=== PATIENT | female | born 1950 | race Caucasian/White ===

== ENCOUNTER 2018-03-10 14:15 | Outpatient (CLI) | payer MEDICARE, MEDICAID, BC, SELFPAY ==
--- NOTE | 2018-03-10 14:27 | DI.RAD_ITS ---
SYMPTOMS/DIAGNOSIS: FATIGUE, H/O HYPONATREMIA, RALES RLL, R06.89, R53.83 CHEST: Frontal and lateral views. No priors. The heart size and pulmonary vasculature are within normal limits. The lungs are clear. No effusions or pneumothoraces are identified. Age appropriate changes are seen in the thoracic spine. IMPRESSION: No acute pulmonary process.
[2018-03-10 16:05] LABS: Anion Gap 10.9 mmol/L (3-11); BUN 13 mg/dL (7-18); CO2 26.1 mmol/L (21.0-32.0); CREATININE 0.73 mg/dL (0.55-1.02); Calcium 9.6 mg/dL (8.5-10.1); Chloride 94 mmol/L (98-107); Glucose 96 mg/dL (70-100); Potassium 4.5 mmol/L (3.5-5.1); Sodium 131 mmol/L (136-145)
== END 2018-03-10 14:35 ==
PROVIDERS: PCP Family Medicine; Visit Provider Family Medicine
DX: I10 Essential (primary) hypertension (principal); R53.83 Other fatigue; R06.89 Other abnormalities of breathing
CPT/HCPCS: 36415; 80048; 71046

== ENCOUNTER 2018-04-15 01:01 | Outpatient (CLI) | payer MEDICARE, BC, MEDICAID, SELFPAY ==
--- NOTE | 2018-04-15 13:19 | DI.CT_ITS ---
SYMPTOM/DIAGNOSIS: CHRONIC HYPONATREMIA WITH RALES E87.1, R09.89, E03.[address]: Comparison is made with chest x-ray dated 10 Mar 2018 Images were performed from the lung bases through the level of the adrenals after IV contrast. There is mild subpleural septal thickening greatest anteriorly in the upper lobes and laterally, and posteriorly in the lung bases. There is also a reticular pattern in both lower lobes, right greater than left with mild traction bronchiectasis, right greater than left. No mass, infiltrate, pleural or pericardial effusion seen. There are no enlarged lymph nodes. Coronary artery calcifications and mild aortic calcifications are seen. The visualized portions of the upper abdomen are unremarkable. No lytic or blastic bony lesions are seen. IMPRESSION: Mild subpleural septal thickening, reticular densities in the lung bases right greater than left, bronchiectasis. The findings may indicate idiopathic pulmonary fibrosis.
[2018-04-15] MEDS: Omnipaque 350 MG/ML 100 ML BTL IJ (14:16)
[2018-04-15 14:33] LABS: Abs Immature Grans 0.01 k/cumm (0.0-0.09); Absolute Basophil Count 0.04 k/cumm (0.0-0.2); Absolute Eosinophil Count 0.24 k/cumm (0.0-0.7); Absolute Lymphocyte Count 2.24 k/cumm (1.2-3.4); Absolute Monocyte Count 0.35 k/cumm (0.11-0.7); Basophils % 0.6; Eosinophils % 3.5; HCT 35.8 % (36.0-46.0); HGB 12.6 g/dL (12.0-15.5); Immature Grans % 0.1; Mean Corp. HGB Concentration 35.2 g/dL (32.0-36.0); Mean Corpuscular Hemoglobin 34.6 pg (27.0-33.0); Mean Corpuscular Volume 98.4 fL (80-95); Mean Platelet Volume 8.7 fL (8.0-11.0); Monocytes % 5.2; Neutrophils % 57.6; Platelet Count 290 x1000/uL (130-400); RBC 3.64 m/cumm (4.00-5.20); RBC Distribution Width 12.6 % (11.7-14.6); White Blood Cell Count 6.78 k/cumm (4.4-10.8)
[2018-04-15 15:36] LABS: Sodium, Urine 34 mmol/L
[2018-04-15 16:15] LABS: Anion Gap 9.9 mmol/L (3-11); BUN 12 mg/dL (7-18); CO2 26.1 mmol/L (21.0-32.0); CREATININE 0.77 mg/dL (0.55-1.02); Calcium 9.6 mg/dL (8.5-10.1); Chloride 94 mmol/L (98-107); Glucose 103 mg/dL (70-100); Potassium 4.3 mmol/L (3.5-5.1); Sodium 130 mmol/L (136-145); TSH 2.79 uIU/mL (0.358-3.74)
[2018-04-15 22:22] LABS: Osmolality, Urine 254 mos/kg (150-1150)
[2018-04-15 23:42] LABS: Osmolality Serum 278 mos/kg (275-295)
== END 2018-04-15 01:21 ==
PROVIDERS: PCP Family Medicine; Visit Provider Family Medicine
DX: E87.1 Hypo-osmolality and hyponatremia (principal); E03.9 Hypothyroidism, unspecified; I10 Essential (primary) hypertension; R09.89 Other specified symptoms and signs involving the circulatory and respiratory systems; R91.8 Other nonspecific abnormal finding of lung field; J47.9 Bronchiectasis, uncomplicated
CPT/HCPCS: 36415; 80048; 83935; 71260; 83930; 84300; 84443; 85025; J3490

== ENCOUNTER 2018-04-28 02:46 | Outpatient (CLI) | payer MEDICARE, BC, MEDICAID, SELFPAY ==
--- NOTE | 2018-04-28 | PFT_ITS ---
PULMONARY FUNCTION TEST REPORT Patient identification - Bushra Cook DATE OF - 54 DATE OF SERVICE - 04/28/18 REQUESTING PROVIDER - Bryan Pulliam M.D. INTERPRETATION OF STUDY Spirometry shows no evidence of obstructive airways disease. No bronchodilator testing was carried out. LUNG VOLUMES - Lung volumes showed no evidence of restriction. DIFFUSION CAPACITY- Normal. AIRWAY RESISTANCE - Normal. IMPRESSION Normal pulmonary function study, clinical correlation recommended. Maribeth Marie M.D. CASPER/margarette T - 04/29/2018
== END 2018-04-28 03:06 ==
PROVIDERS: PCP Family Medicine; Visit Provider Family Medicine
DX: J84.10 Pulmonary fibrosis, unspecified (principal)
CPT/HCPCS: 94150; 94726; 94729; 94010

== ENCOUNTER 2018-10-20 18:27 | Outpatient (REF) | payer MEDICARE, BC, SELFPAY ==
[2018-10-20 19:43] LABS: Bilirubin Negative (Negative); Blood Trace-intact (Negative); Clarity Cloudy; Glucose Negative (Negative); Ketones Negative (Negative); Leukocyte Esterase Large (Negative); Nitrite Positive (Negative); Specific Gravity 1.015 (1.005-1.025); Urobilinogen 0.2 EU/dL (Up TO 0.2); pH 6.5 (5-8)
[2018-10-20 20:18] LABS: Epithelial Cells Rare HPF (Negative); Other Cells Negative (Negative); WBC >50 HPF (0-5)
[2018-10-20 20:19] LABS: Bacteria Many HPF (Negative); C & S Indicated? C&S Done As Ordered; Casts Negative LPF (Negative); Crystals Negative HPF (Negative); Mucus Negative (Negative)
== END 2018-10-20 18:47 ==
LOC: NCHCN 18:27
PROVIDERS: PCP Family Medicine; Visit Provider Family Medicine
DX: R30.0 Dysuria (principal)
CPT/HCPCS: 87077; 81003; 81015; 87086; 87186

== ENCOUNTER 2018-11-10 10:55 | Outpatient (CLI) | payer MEDICARE, BC, SELFPAY ==
[2018-11-10 12:24] LABS: Mean Corp. HGB Concentration 34.3 g/dL (32.0-36.0); Mean Corpuscular Hemoglobin 34.3 pg (27.0-33.0); Mean Platelet Volume 9.4 fL (8.0-11.0); Platelet Count 263 x1000/uL (130-400); RBC Distribution Width 12.6 % (11.7-14.6); White Blood Cell Count 6.64 k/cumm (4.4-10.8)
[2018-11-10 16:01] LABS: Iron 92 ug/dL (50-175); Total Iron Binding Capacity 361 ug/dL (250-450); Transferrin Sat 25 % (15-50)
[2018-11-10 16:05] LABS: ALT 41 U/L (12-78); AST 49 U/L (15-37); Albumin 4.2 g/dL (3.4-5.0); Alkaline Phosphatase 82 U/L (46-116); Anion Gap 11.5 mmol/L (3-11); BUN 13 mg/dL (7-18); Bilirubin, Total 0.4 mg/dL (0.2-1.0); CO2 24.5 mmol/L (21.0-32.0); CREATININE 0.71 mg/dL (0.55-1.02); Calcium 9.9 mg/dL (8.5-10.1); Chloride 100 mmol/L (98-107); Glucose 93 mg/dL (70-100); Potassium 5.1 mmol/L (3.5-5.1); Sodium 136 mmol/L (136-145); TSH 2.05 uIU/mL (0.358-3.74); Total Protein 7.8 g/dL (6.4-8.2)
== END 2018-11-10 11:15 ==
PROVIDERS: PCP Family Medicine; Visit Provider Family Medicine
DX: I10 Essential (primary) hypertension (principal); D64.9 Anemia, unspecified; E03.9 Hypothyroidism, unspecified
CPT/HCPCS: 36415; 80053; 85027; 83540; 83550; 84443

== ENCOUNTER 2019-05-31 10:57 | Outpatient (CLI) | payer MEDICARE, BC, SELFPAY ==
[2019-05-31 11:45] LABS: Abs Immature Grans 0.01 k/cumm (0.0-0.09); Absolute Basophil Count 0.06 k/cumm (0.0-0.2); Absolute Eosinophil Count 0.41 k/cumm (0.0-0.7); Absolute Lymphocyte Count 1.89 k/cumm (1.2-3.4); Basophils % 0.8; Eosinophils % 5.6; HCT 34.2 % (36.0-46.0); HGB 11.7 g/dL (12.0-15.5); Immature Grans % 0.1 %; Lymphocytes % 25.6; Mean Corp. HGB Concentration 34.2 g/dL (32.0-36.0); Mean Corpuscular Hemoglobin 34.4 pg (27.0-33.0); Mean Corpuscular Volume 100.6 fL (80-95); Mean Platelet Volume 8.8 fL (8.0-11.0); Monocytes % 6.8; Neutrophils % 61.1; Platelet Count 295 x1000/uL (130-400); RBC Distribution Width 13.8 % (11.7-14.6); White Blood Cell Count 7.37 k/cumm (4.4-10.8)
== END 2019-05-31 11:17 ==
PROVIDERS: PCP Family Medicine; Visit Provider Family Medicine
DX: R71.8 Other abnormality of red blood cells (principal)
CPT/HCPCS: 36415; 85025

== ENCOUNTER 2019-11-26 02:30 | Outpatient (CLI) | payer MEDICARE, BC, SELFPAY ==
[2019-11-26 12:56] LABS: Abs Immature Grans 0.01 k/cumm (0.0-0.09); Absolute Basophil Count 0.02 k/cumm (0.0-0.2); Absolute Eosinophil Count 0.49 k/cumm (0.0-0.7); Absolute Lymphocyte Count 1.28 k/cumm (1.2-3.4); Absolute Monocyte Count 0.42 k/cumm (0.11-0.7); Absolute Neutrophil Count 2.56 k/cumm (1.2-6.7); Basophils % 0.4; Eosinophils % 10.3; HCT 36.3 % (36.0-46.0); HGB 12.4 g/dL (12.0-15.5); Immature Grans % 0.2 %; Lymphocytes % 26.8; Mean Corp. HGB Concentration 34.2 g/dL (32.0-36.0); Mean Corpuscular Hemoglobin 33.4 pg (27.0-33.0); Mean Corpuscular Volume 97.8 fL (80-95); Mean Platelet Volume 10.1 fL (8.0-11.0); Monocytes % 8.8; Neutrophils % 53.5; Platelet Count 293 x1000/uL (130-400); RBC 3.71 m/cumm (4.00-5.20); RBC Distribution Width 12.8 % (11.7-14.6); White Blood Cell Count 4.78 k/cumm (4.4-10.8)
[2019-11-26 13:44] LABS: ALT 25 U/L (14-59); AST 31 U/L (15-37); Albumin 4.1 g/dL (3.4-5.0); Alkaline Phosphatase 54 U/L (46-116); Anion Gap 8.1 mmol/L (3-11); BUN 9 mg/dL (7-18); Bilirubin, Total 0.4 mg/dL (0.2-1.0); CO2 28.9 mmol/L (21.0-32.0); CREATININE 0.69 mg/dL (0.55-1.02); Calcium 9.9 mg/dL (8.5-10.1); Calculated LDL 205 mg/dL (<100); Chloride 97 mmol/L (98-107); Cholesterol 322 mg/dL (<200); Folate 17.3 ng/mL (8.6-20.0); Glucose 94 mg/dL (74-106); HDL Cholesterol 105 mg/dL (40-60); Potassium 5.4 mmol/L (3.5-5.1); Sodium 134 mmol/L (136-145); TSH 3.24 uIU/mL (0.36-3.74); Total Protein 7.1 g/dL (6.4-8.2); Triglyceride 64 mg/dL (<150); Vitamin B12 571 pg/mL (193-986)
== END 2019-11-26 02:50 ==
PROVIDERS: PCP Family Medicine; Visit Provider Family Medicine
DX: D64.9 Anemia, unspecified (principal); D75.89 Other specified diseases of blood and blood-forming organs; E03.9 Hypothyroidism, unspecified; I10 Essential (primary) hypertension; R53.83 Other fatigue
CPT/HCPCS: 36415; 80053; 80061; 82607; 82746; 84443; 85025

== ENCOUNTER 2019-11-30 07:34 | Outpatient (CLI) | payer MEDICARE, BC, SELFPAY ==
[2019-12-02 02:56] LABS: COVID-19 RT-PCR Result NEGATIVE (Negative)
== END 2019-11-30 07:54 ==
PROVIDERS: PCP Family Medicine; Visit Provider Podiatrist
DX: Z03.818 Encounter for observation for suspected exposure to other biological agents ruled out (principal)
CPT/HCPCS: U0003

== ENCOUNTER 2019-12-03 06:18 | Day surgery (SDC) | payer MEDICARE, BC, SELFPAY ==
[2019-12-03 06:34] VITALS: BP 139/78; PULSE 71; RESP 16; TEMP 36.5; O2SAT 93
--- NOTE | 2019-12-03 07:19 | HPE_ITS ---
Date of service: 12/03/19 Time of Service: 07:19 History of Present Illness History of Present Illness Chief Complaint: Plantar fibroma right foot Narrative: 69-year-old female with daily pain associated with a prominent plantar fibroma of the right foot requesting surgical excision. Pain is interfering with daily activities and shoe gear. Nonoperative treatment failed to provide significant relief of symptoms. 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 Sister Depression Brother , AGE 67 Lung cancer Social History Smoking/Tobacco Use Status: Former Tobacco Use Tobacco: How many years used: 15 Alcohol Intake: current Alcohol Intake frequency: 0-2 drinks per day Alcohol type: beer Drug use: Socially Substance use type: marijuana Household members: other Details: 3 Pets and animals: Yes Pets and animals: cat(s), dog(s), horse(s) and farm animals Duration: decline to answer Frequency: daily Lluvia/Hoahaoism: Sabianist Special lluvia needs: No Seatbelt use: sometimes Helmet use: Yes Do you feel safe at home: Yes Do you feel safe in your relationship?: Yes Meds Home Medications and Allergies Home Medications Medication Instructions Recorded Confirmed Type antiarthritic combination no.2 900 mg PO DAILY tab 02/18/18 11/08/19 History mg tablet ascorbic acid (vitamin C) 1,000 mg 1,000 mg PO DAILY PRN tab 05/18/19 12/03/19 History tablet vitamin B complex 1 tab PO DAILY PRN 05/18/19 12/03/19 History amlodipine 2.5 mg tablet 2.5 mg PO DAILY #90 tab 07/20/19 12/03/19 Rx amlodipine 5 mg tablet 5 mg PO DAILY #90 tab 07/20/19 12/03/19 Rx levothyroxine 112 mcg capsule 112 mcg PO DAILY #90 cap 07/20/19 12/03/19 Rx losartan 100 mg tablet 100 mg PO DAILY #90 tab 07/20/19 12/03/19 Rx Allergies Allergy/AdvReac Type Severity Reaction Status Date / Time morphine AdvReac Agitation Verified 11/30/19 13:48 Exam Narrative Exam Narrative: 69-year-old female in no acute distress. Head is normocephalic Eyes PERRLA Hearing is adequate Uvular is midline, airway looks assessable Heart had regular rate and rhythm without gallops rubs or murmurs Lung sullivan are clear Abdomen was soft, bowel sounds x4 Peripheral pulses are manually palpable minus 2 out of 4. CFT under 3 seconds to all toes no edema Muscle groups of 5 out of 5 bilaterally. A firm mass is appreciated within the medial slip of the plantar fascia of the right foot at the distal third highly consistent with plantar fibroma. Nonpulsatile, firm to palpation, overlying skin freely mobile. Neurologically grossly intact Impression: Soft tissue mass right foot probable plantar fibroma Plan: Bushra being brought to the OR for exploration with excision soft tissue mass right foot. She understands risk and complications of surgery pertaining to pain, scarring, infection, wound dehiscence, recurrence of fibroma and the need for revisional procedures. All questions have been answered. Informed consents been obtained. No promises made to final outcome of surgery. Results Last Vital Signs Temp 36.5 C 12/03/19 06:34 Pulse 71 12/03/19 06:34 Resp 16 12/03/19 06:34 BP 139/78 12/03/19 06:34 Pulse Ox 93 L 12/03/19 06:34 COVID-19 Screening Have you,or household,traveled outside [place] in last 14 days?: No Had IN PERSON contact w/suspected or confirmed C-19 person: No
[2019-12-03] MEDS: Lactated Ringers 1,000 ML 80 ML IV (07:20)
[2019-12-03] MEDS: ceFAZolin 1 GM/50 ML BAG IVPB (07:36)
[2019-12-03] MEDS: Lidocaine 1% Pres-Free 5 ML VIAL (07:55)
[2019-12-03] MEDS: Bupivacaine 0.5% Pres-Free 30 ML VIAL (07:55)
--- NOTE | 2019-12-03 08:05 | SOFT_PTH ---
PATIENT: Bushra Cook LOC: [facility] U#:[id number] AGE/SX: 69/F ROOM: RE12/03/[address]: Eber Titus : 1950 BED: DIS: 12/03/2019 SPEC #: [id number] RECD: 12/03/19 12:20 STATUS: FAZAL RELauren #: [id number] DESTIN: 12/03/19 08:[address]: Eber Titus DEPT: Surgical Specimen RECD BY: Bianca Patel ENTERED: 12/03/19 12:21 SP TYPE: SOFT OTHR DR: Bryan Pulliam MD Tissues: 1 - SOFT TISSUE MISC (INC. LIPOMA) Procedures: GROSS AND MICRO LEVEL 4 Comments: [id number]
[2019-12-03] MEDS: Dexamethasone 4 MG/ML VIAL (08:11)
--- NOTE | 2019-12-03 08:28 | ROE_ITS ---
Date of service: 12/03/19 Time of Service: 08:29 Operative Note Operative Note DATE OF PROCEDURE: 12/03/19 PRE-OP DIAGNOSIS: Soft tissue mass right foot probable plantar fibroma PROCEDURE: Excision plantar fibroma, right foot ANESTHESIA: GETA ESTIMATED BLOOD LOSS: 1 PATHOLOGY: other TOURNIQUET TIME: 25 Patient was transported to: same day Patient's condition: stable Procedure Description: 69-year-old female with increasing pain associated with a slowly enlarging mass situated within the medial slip of the plantar fascia right foot. She is being brought to the OR for surgical excision. She understands risk and complications including the potential for pain, scarring, infection, recurrence of mass and the need for revisional procedures. Informed consents been obtained. Bushra was brought to the operative suite placed in the supine position with a right foot prepped and draped in the usual sterile podiatric fashion. Timeout was performed per [facility] protocol. The right foot was anesthetized with 20 cc utilizing 15 cc of 0.5% Marcaine and 5 cc of 1% lidocaine all plain the right posterior tibial nerve block and local infiltration around the mass. General anesthesia was also utilized for patient comfort. Attention was directed to the right foot which was exsanguinated and a well- padded ankle tourniquet inflated to 250 mmHg. A lazy S incision was placed starting distal lateral going across the mass and ending medially proximally. The length of the incision was approximately 4 cm. The incision was deepened in controlled depth fashion with a #15 scalpel. Soft tissue mobilization and dissection was performed both sharply and bluntly switching to a baby Metzenbaum for further dissection. The mass was immediately identifiable and dissection continued distally medially laterally and proximally. Once the lesion was fully identified and visible I placed a incision through the plantar fascia at the distal pole of the lesion went deep to the plantar fascia and dissected away from the underlying muscle belly which was readily visible. No neurologic structures were identified. Dissection was carried medially proximally lifting the mass with the section of plant the fascia off the wound moving laterally doing the same thing and peeling the fibroma off the underlying muscle belly. Once it was fully lifted up it was released from its most proximal attachment and removed from the surgical wound. The mass was sent in formalin to pathology. In a palpation and visual inspection of the surrounding fascia failed to reveal any abnormal thickening of for the fibroma formation. The wound was copiously irrigated and the deep layer was closed with simple interrupted suture of 4-0 Vicryl and there was a single 3-0 Vicryl used in the central portion of the incision to relieve tension. Good skin edge opposition was appreciated. The skin was then closed with a combination of 3 horizontal mattress 3-0 nylon suture interspersed by several 4-0 nylon simple interrupted suture. 4 mg of dexamethasone phosphate was infused deeply within the wound. Xeroform fluffs Curlex web well and a fiberglass posterior splint was applied with the foot in slight plantarflexion. The tourniquet was released at 25 minutes with vascularity returning immediately to all toes. Sharp and sponge counts were correct x2. Bushra left the OR with vital signs stable vascular status intact will be followed by myself in the office next week. She will be fitted for axillary crutches and will remain nonweightbearing for the right lower extremity.
--- NOTE | 2019-12-03 08:36 | W.PM.DSUDISC ---
Discharge Plan Disposition Patient Disposition: HOME Condition: Good Discharge Details Reason For Visit: EXCISION MASS Attending Provider: Eber Titus Primary Care Provider: Bryan Pulliam Home Meds and New Rx's Prescriptions: New ibuprofen 600 mg tablet 600 mg PO Q6H PRN (Reason: post op pain) Qty: 40 RF: 0 hydrocodone-acetaminophen [[place]] 5-325 mg tablet 1 tab PO Q6H PRN (Reason: pain) Qty: 7 RF: 0 Continued antiarthritic combination no.2 [glucosamine-chondroitin] 900 mg tablet PO DAILY RF: 0 vitamin B complex Tablet 1 tab PO DAILY PRNRF: 0 ascorbic acid (vitamin C) 1,000 mg tablet 1,000 mg PO DAILY PRNRF: 0 amlodipine 5 mg tablet 5 mg PO DAILY Qty: 90 RF: 3 amlodipine 2.5 mg tablet 2.5 mg PO DAILY Qty: 90 RF: 3 levothyroxine 112 mcg capsule 112 mcg PO DAILY Qty: 90 RF: 3 losartan 100 mg tablet 100 mg PO DAILY Qty: 90 RF: 3 Discharge Instructions Equipment/Supplies: Non-Weight Bearing Crutches Activity:: Elevate Remove Dressings/Wound Care:: Do Not Remove Shower/Bathe:: Cover Diet:: Normal Diet Discharge Orders Discharge Orders: Discharge Order (Routine); Ordered 12/03/19 Ordered By: Eber Titus DS: Diagnosis Discharge Diagnosis (1) Plantar fascial fibromatosis of right foot: Status: Acute
[2019-12-03] MEDS: Ketorolac 15 MG/ML VIAL IVP (08:45)
[2019-12-03] MEDS: Normal Saline Flush 10 ML SYR IVP (08:45)
[2019-12-03 08:58] VITALS: BP 89/63; PULSE 65; RESP 16; TEMP 36.1; O2SAT 100
--- NOTE | 2019-12-03 09:38 | NUR.NOTE ---
Low BP on phase II: 80/50 at 0828 and 89/63 at 0858. Anesthesia notified. Verbal order to bolus remaining IV fluid. BP at 0930 was 105/80. Pt. denied dizziness and accepted 120 of PO fluids. Pt. up and assisted to the restroom w/o issues. Nursing Note:
[2019-12-03] MEDS: Lactated Ringers 500 ML IV (09:49)
== END 2019-12-03 09:37 | disposition home or self-care (01) ==
PROVIDERS: PCP Family Medicine; Visit Provider Podiatrist
PROC: (CPT 28060; principal; 2019-12-03 07:30)
DX: M72.2 Plantar fascial fibromatosis (principal)
CPT/HCPCS: 28060; 88305; 99222; 88304; J0690; J1100; J1885; J2405

== ENCOUNTER 2020-02-09 03:03 | Outpatient (CLI) | payer MEDICARE, BC, SELFPAY ==
--- NOTE | 2020-02-09 10:51 | DI.RAD_ITS ---
EXAM: XR HIP RT COMPLETE AP PELVIS INDICATION: H/O of remote trauma, progressive RT HIP PAIN,M25.551. COMPARISON: No exams were available for comparison TECHNIQUE: 2D digital imaging was performed. FINDINGS: The hip joint spaces are well maintained. There is mild bilateral acetabular spurring. There is spu rring from the greater trochanters. There is a calcification adjacent to the left greater trochanter . There is mild spurring at the SI joints. There are severe degenerative changes of the lower lumba r spine. IMPRESSION: Mild degenerative changes both hips. Soft tissue calcification near the left greater trochanter. DATA REPOSITORY: RADIATION DOSE DELIVERED:
== END 2020-02-09 03:23 ==
PROVIDERS: PCP Family Medicine; Visit Provider Family Medicine
DX: M16.0 Bilateral primary osteoarthritis of hip (principal); M79.89 Other specified soft tissue disorders
CPT/HCPCS: 73502

== ENCOUNTER 2020-02-11 02:04 | Outpatient (CLI) | payer MEDICARE, BC, SELFPAY ==
[2020-02-11 13:21] LABS: ALT 25 U/L (14-59); AST 35 U/L (15-37); Alkaline Phosphatase 63 U/L (46-116); Anion Gap 8.5 mmol/L (3-11); BUN 7 mg/dL (7-18); Bilirubin, Total 0.7 mg/dL (0.2-1.0); CO2 25.5 mmol/L (21.0-32.0); CREATININE 0.65 mg/dL (0.55-1.02); Calcium 9.2 mg/dL (8.5-10.1); Calculated LDL 77 mg/dL (<100); Chloride 95 mmol/L (98-107); Cholesterol 197 mg/dL (<200); Glucose 88 mg/dL (74-106); HDL Cholesterol 110 mg/dL (40-60); Potassium 4.9 mmol/L (3.5-5.1); Sodium 129 mmol/L (136-145); Total Protein 6.9 g/dL (6.4-8.2); Triglyceride 51 mg/dL (<150)
== END 2020-02-11 02:24 ==
PROVIDERS: PCP Family Medicine; Visit Provider Family Medicine
DX: I10 Essential (primary) hypertension (principal); E78.5 Hyperlipidemia, unspecified
CPT/HCPCS: 36415; 80053; 80061

== ENCOUNTER 2020-03-14 01:31 | Outpatient (CLI) | payer MEDICARE, BC, SELFPAY ==
--- NOTE | 2020-03-14 07:00 | DI.MRI_ITS ---
EXAM: MR LOWER JOINT RT WO CLINICAL HISTORY: chronic R hip pain with catching/click w walking,M94.9,G89.29,M25.551 TECHNIQUE: Multiplanar multisequence MRI of Pelvis was performed COMPARISON: CR XR HIP RT COMPLETE AP PELVIS from 02/09/2020 FINDINGS: Bones: There is no fracture or contusion pattern. There is a right hip joint effusion present. Inte rmediate signal soft tissue is seen within the right hip joint inferiorly. There is marrow edema see n in the right acetabulum and the right humeral head and neck. The visualized SI joints and symphysi s pubis are well maintained. Musculotendinous structures: Musculotendinous structures demonstrate no abnormality. Intrapelvic str uctures demonstrate no significant abnormality. There is no evidence of suspicious enhancement. IMPRESSION: Findings in the right hip as described above. Differential considerations should include rheumatoid a rthritis, avascular necrosis, PVNS, synovial chondromatosis or arthropathy. DATA REPOSITORY:
== END 2020-03-14 01:51 ==
PROVIDERS: PCP Family Medicine; Visit Provider Family Medicine
DX: M25.451 Effusion, right hip (principal); R93.6 Abnormal findings on diagnostic imaging of limbs; M25.551 Pain in right hip; G89.29 Other chronic pain
CPT/HCPCS: 73721

== ENCOUNTER 2020-04-10 11:55 | Outpatient (CLI) | payer MEDICARE, BC, SELFPAY ==
--- NOTE | 2020-04-10 11:15 | DI.RAD_ITS ---
EXAM: XR PELVIS AP CLINICAL HISTORY: planning VASQUEZ TECHNIQUE: COMPARISON: CR XR HIP RT COMPLETE AP PELVIS from 02/09/2020 FINDINGS: Single AP view pelvis with there are moderate degenerative changes of both hips, right greater than l eft. There are degenerative changes of both SI joints noted as well. IMPRESSION: RADIATION DOSE DELIVERED: Total DLP Total DLP
== END 2020-04-10 12:15 ==
PROVIDERS: PCP Family Medicine; Referring Provider Family Medicine; Visit Provider Student in an Organized Health Care Education/Training Program
DX: M16.0 Bilateral primary osteoarthritis of hip (principal); M87.051 Idiopathic aseptic necrosis of right femur; I10 Essential (primary) hypertension
CPT/HCPCS: 99204; 99215; 72170

== ENCOUNTER 2020-04-14 01:56 | Outpatient (CLI) | payer MEDICARE, BC, SELFPAY ==
[2020-04-14 10:38] LABS: HCT 32.7 % (36.0-46.0); HGB 11.7 g/dL (11.2-15.7); MCH 33.8 pg (27.0-33.0); MCHC 35.8 % (32.0-36.0); MCV 94.5 fL (80-95); MPV 9.3 fL (8.0-11.0); Platelet Count 343 10^3/uL (130-400); RBC 3.46 10^6/uL (3.93-5.22); RDW 11.8 % (11.7-14.6); RDW-SD 40.5 fL; WBC 5.37 10^3/uL (4.4-10.8)
[2020-04-14 11:18] LABS: Anion Gap 5.4 mmol/L (3-11); BUN 7 mg/dL (7-18); CO2 27.6 mmol/L (21.0-32.0); CREATININE 0.63 mg/dL (0.55-1.02); Calcium 9.6 mg/dL (8.5-10.1); Chloride 91 mmol/L (98-107); Glucose 89 mg/dL (74-106); Potassium 5.1 mmol/L (3.5-5.1)
[2020-04-14 11:20] LABS: Sodium 124 mmol/L (136-145)
[2020-04-14 11:21] LABS: C-Reactive Protein < 0.05 mg/dL (0.0-0.3)
[2020-04-14 11:39] LABS: ESR 10 mm/hr (0-30)
[2020-04-15 16:46] LABS: COVID-19 RT-PCR Result NEGATIVE (Negative)
== END 2020-04-14 02:16 ==
PROVIDERS: PCP Family Medicine; Visit Provider Student in an Organized Health Care Education/Training Program
DX: M25.551 Pain in right hip (principal); M87.051 Idiopathic aseptic necrosis of right femur; Z11.59 Encounter for screening for other viral diseases; Z01.818 Encounter for other preprocedural examination; Z01.812 Encounter for preprocedural laboratory examination
CPT/HCPCS: 36415; 80048; 85027; 85652; 86850; 86900; 86901; U0003; 86140

== ENCOUNTER 2020-04-18 06:06 | Day surgery (SDC) | payer MEDICARE, BC, SELFPAY ==
[2020-04-18] VITALS (7 sets, daily range): BP systolic 108–136; BP diastolic 64–86; PULSE 62–79; RESP 12–21; TEMP 36.3–36.5; O2SAT 98–100
[2020-04-18] MEDS: Lactated Ringers 1,000 ML 30 ML IV (07:03)
[2020-04-18] MEDS: Acetaminophen 500 MG TAB 1000 MG PO (07:03)
[2020-04-18] MEDS: Celecoxib 200 MG CAP 400 MG PO (07:03)
[2020-04-18 07:10] LABS: Anion Gap 10.5 mmol/L (3-11); BUN 10 mg/dL (7-18); CO2 22.5 mmol/L (21.0-32.0); CREATININE 0.82 mg/dL (0.55-1.02); Calcium 9.6 mg/dL (8.5-10.1); Chloride 101 mmol/L (98-107); Glucose 96 mg/dL (74-106); Potassium 4.2 mmol/L (3.5-5.1); Sodium 134 mmol/L (136-145)
--- NOTE | 2020-04-18 07:31 | W.PM.DS.N ---
DS: Diagnosis Discharge Diagnosis (1) Avascular necrosis of right femoral head: Status: Acute Discharge Plan Disposition Patient Disposition: HOME Condition: Good Discharge Details Reason For Visit: right hip DJD Attending Provider: Bo Noland Primary Care Provider: Bryan Pulliam Home Meds and New Rx's Prescriptions: New acetaminophen 500 mg tablet 500 mg PO Q6H PRN (Reason: pain) Qty: 60 RF: 2 aspirin 81 mg tablet,delayed release (DR/EC) 81 mg PO BID 30 Days Qty: 60 RF: 0 celecoxib [Celebrex] 200 mg capsule 200 mg PO BID Qty: 30 RF: 0 pantoprazole 40 mg tablet,delayed release (DR/EC) 40 mg PO DAILY 30 Days Qty: 30 RF: 0 docusate sodium [Colace] 100 mg capsule 100 mg PO BID Qty: 30 RF: 0 Continued antiarthritic combination no.2 [glucosamine-chondroitin] 900 mg tablet PO DAILY RF: 0 vitamin B complex Tablet 1 tab PO DAILY PRNRF: 0 levothyroxine 112 mcg capsule 112 mcg PO DAILY Qty: 90 RF: 3 atorvastatin 20 mg tablet 20 mg PO QHS Qty: 30 RF: 11 losartan 50 mg tablet 100 mg PO DAILY Qty: 90 RF: 3 amlodipine 5 mg tablet 5 mg PO DAILY Qty: 30 RF: 11 Discontinued aspirin [Adult Aspirin Regimen] 81 mg tablet,delayed release (DR/EC) 81 mg PO DAILY Qty: 90 RF: 3 ibuprofen 600 mg tablet 600 mg PO Q6H PRN (Reason: post op pain) Qty: 40 RF: 0 Discharge Instructions Additional Instructions: Total Hip Discharge Instructions Activity: The most important activity is to walk. You should try to take short walks a few times a day. You have no restrictions on movement or positioning, but do not try to force what you do. You will find some stiffness and weakness with hip flexion (lifting your knee). Do not try to strengthen this too early, continue to practice walking and stairs and this will come. - Outpatient physical therapy can be helpful to help return you to a normal gait and improve your flexibility and strength. This can start around 2 weeks. For some patients, it?s not necessary. Usually this is determined at the time of discharge or at the first post-operative visit. - You should wear the BAYLEE hose on both legs for 2 weeks. Dressing: Keep the surgical dressing in place for at least one week. After the first week it may be removed and replace with light gauze and tape or nothing. It may get wet after 3 days but avoid soaking the dressing. If it gets wet, just lightly pat dry. It is important to always keep some gauze between skin folds, especially when you are sitting. Spend some time with the wound exposed when you are lying flat as the incision does wrinkle onto itself. Medications: - You should take Tylenol and an anti-inflammatory Celebrex as your primary pain control medications. If the Celebrex is too expensive or not covered, please call the office for another alternative (Advil/Ibuprofen or Naproxen/Aleve). - You had previously been prescribed a stronger pain medication Oxycodone by your PCP for breakthrough pain, take as needed as prescribed. - You have also been prescribed a stomach acid reduction agent Pantoprozole to help reduce stomach acid and reflux. - You will be taking Aspirin 81mg twice a day for DVT prevention unless instructed otherwise. - If you have constipation you should take Colace (which was prescribed) or Miralax (which you may purchase [id number]). It takes most people 3-4 days to have a bowel movement. Follow-up: 2 weeks If you have any acute concerns or questions, please do not hesitate to contact the office at [phone]. You may contact Dr. Noland with any questions after hours through the hospital at [phone] or on his cell phone at [phone]. Referrals: Bo Noland MD [ [facility] STAFF PHYSICIAN] - Activity:: Activity as Tolerated Remove Dressings/Wound Care:: 72 hours Shower/Bathe:: 72 hours Diet:: As Tolerated DS: Data Vitals/I&O Vitals and I&O: Vital Signs Temperature 36.5 C 04/18/20 06:21 Pulse 73 04/18/20 06:21 Pulse Rhythm Regular 04/18/20 06:21 Respiratory Rate 16 04/18/20 06:21 Respiratory Effort 04/18/20 06:21 Respiratory Depth Normal 04/18/20 06:21 Respiratory Pattern Normal 04/18/20 06:21 Blood Pressure 110/69 04/18/20 06:21 Pulse Oximetry 100 04/18/20 06:21 Oxygen Delivery Method Room Air 04/18/20 06:21 Oxygen Flow Rate 0 04/18/20 06:21 Pain Level 5 04/18/20 06:21 Intake & Output 04/17/20 04/17/20 04/18/20 11:59 23:59 11:59 Weight 55.5 kg Data Completed and Pending Labs on day of discharge: Labs from last 24 hours 04/18/20 06:50 Sodium 134 L Potassium 4.2 Chloride 101 Carbon Dioxide 22.5 Anion Gap 10.5 BUN 10 Creatinine 0.82 Estimated GFR/1.73 m2 >= 60.00 Glucose 96 Calcium 9.6 [facility] Medical History Anemia Essential hypertension Hyperlipidemia Hypothyroidism Plantar fascial fibromatosis of right foot Pulmonary fibrosis Pt. states it has been put by the wayside because I score so well on the tests, and doctor states they don't hear it anymore, and it was related to a pneumonia at one point and time, and now they say it isn't a problem. 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 Sister Depression Brother , AGE 67 Lung cancer Social History Smoking/Tobacco Use Status: Former Tobacco Use Tobacco: How many years used: 15 Smoking risk assessment performed?: Yes Alcohol Intake: current Alcohol Intake frequency: 0-2 drinks per day Alcohol type: beer Drug use: Never Substance use type: marijuana Household members: other Details: 3 Pets and animals: Yes Pets and animals: cat(s), dog(s), horse(s) and farm animals Duration: decline to answer Frequency: daily Lluvia/Congregation: Nondenominational Special lluvia needs: No Seatbelt use: sometimes Helmet use: Yes Do you feel safe at home: Yes Do you feel safe in your relationship?: Yes
[2020-04-18] MEDS: ceFAZolin 2 GM/50 ML BAG IVPB (07:40)
[2020-04-18] MEDS: Ketorolac 30 MG/ML VIAL (07:57)
[2020-04-18] MEDS: Bupivacaine 0.25% Pres-Free 30 ML VIAL (07:57)
--- NOTE | 2020-04-18 08:32 | DI.RAD_ITS ---
EXAM: XR HIP RT IN OR CLINICAL HISTORY: right hip OA TECHNIQUE: 2D and realtime digital imaging was performed. COMPARISON: No exams were available for comparison FINDINGS: C-arm fluoroscopy was utilized by Dr. Noland during placement of right hip prosthesis. Hard copies show femoral and acetabular components in good position. Fluoro time, 37 seconds. IMPRESSION: RADIATION DOSE DELIVERED: Total DLP
--- NOTE | 2020-04-18 08:57 | DSE_ITS ---
Documented by User: Marcelle Morochoxon 04/18/20 09:29 DS: Diagnosis Discharge Diagnosis (1) Avascular necrosis of right femoral head: Status: Acute Discharge Plan Disposition Patient Disposition: HOME Condition: Good Discharge Details Reason For Visit: right hip DJD Attending Provider: Bo Noland Primary Care Provider: Bryan Pulliam Home Meds and New Rx's Prescriptions: New acetaminophen 500 mg tablet 500 mg PO Q6H PRN (Reason: pain) Qty: 60 RF: 2 aspirin 81 mg tablet,delayed release (DR/EC) 81 mg PO BID 30 Days Qty: 60 RF: 0 celecoxib [Celebrex] 200 mg capsule 200 mg PO BID Qty: 30 RF: 0 pantoprazole 40 mg tablet,delayed release (DR/EC) 40 mg PO DAILY 30 Days Qty: 30 RF: 0 docusate sodium [Colace] 100 mg capsule 100 mg PO BID Qty: 30 RF: 0 Continued antiarthritic combination no.2 [glucosamine-chondroitin] 900 mg tablet PO DAILY RF: 0 vitamin B complex Tablet 1 tab PO DAILY PRNRF: 0 levothyroxine 112 mcg capsule 112 mcg PO DAILY Qty: 90 RF: 3 atorvastatin 20 mg tablet 20 mg PO QHS Qty: 30 RF: 11 losartan 50 mg tablet 100 mg PO DAILY Qty: 90 RF: 3 amlodipine 5 mg tablet 5 mg PO DAILY Qty: 30 RF: 11 Discontinued aspirin [Adult Aspirin Regimen] 81 mg tablet,delayed release (DR/EC) 81 mg PO DAILY Qty: 90 RF: 3 ibuprofen 600 mg tablet 600 mg PO Q6H PRN (Reason: post op pain) Qty: 40 RF: 0 Discharge Instructions Additional Instructions: Total Hip Discharge Instructions Activity: The most important activity is to walk. You should try to take short walks a few times a day. You have no restrictions on movement or positioning, but do not try to force what you do. You will find some stiffness and weakness with hip flexion (lifting your knee). Do not try to strengthen this too early, continue to practice walking and stairs and this will come. - Outpatient physical therapy can be helpful to help return you to a normal gait and improve your flexibility and strength. This can start around 2 weeks. For some patients, it?s not necessary. Usually this is determined at the time of discharge or at the first post-operative visit. - You should wear the BAYLEE hose on both legs for 2 weeks. Dressing: Keep the surgical dressing in place for at least one week. After the first week it may be removed and replace with light gauze and tape or nothing. It may get wet after 3 days but avoid soaking the dressing. If it gets wet, just lightly pat dry. It is important to always keep some gauze between skin folds, especially when you are sitting. Spend some time with the wound exposed when you are lying flat as the incision does wrinkle onto itself. Medications: - You should take Tylenol and an anti-inflammatory Celebrex as your primary pain control medications. If the Celebrex is too expensive or not covered, please call the office for another alternative (Advil/Ibuprofen or Naproxen/Aleve). - You had previously been prescribed a stronger pain medication Oxycodone by your PCP for breakthrough pain, take as needed as prescribed. - You have also been prescribed a stomach acid reduction agent Pantoprozole to help reduce stomach acid and reflux. - You will be taking Aspirin 81mg twice a day for DVT prevention unless instructed otherwise. - If you have constipation you should take Colace (which was prescribed) or Miralax (which you may purchase [id number]). It takes most people 3-4 days to have a bowel movement. Follow-up: 2 weeks If you have any acute concerns or questions, please do not hesitate to contact the office at [phone]. You may contact Dr. Noland with any questions after hours through the hospital at [phone] or on his cell phone at [phone]. Referrals: Bo Noland MD [ [facility] STAFF PHYSICIAN] - Activity:: Activity as Tolerated Remove Dressings/Wound Care:: 72 hours Shower/Bathe:: 72 hours Diet:: As Tolerated Discharge Orders Discharge Orders: Discharge Order (Routine); Ordered 04/18/20 Ordered By: oB Noland DS: Data Vitals/I&O Vitals and I&O: Vital Signs Temperature 36.5 C 04/18/20 06:21 Pulse 73 04/18/20 06:21 Pulse Rhythm Regular 04/18/20 06:21 Respiratory Rate 16 04/18/20 06:21 Respiratory Effort 04/18/20 06:21 Respiratory Depth Normal 04/18/20 06:21 Respiratory Pattern Normal 04/18/20 06:21 Blood Pressure 110/69 04/18/20 06:21 Pulse Oximetry 100 04/18/20 06:21 Oxygen Delivery Method Room Air 04/18/20 06:21 Oxygen Flow Rate 0 04/18/20 06:21 Pain Level 5 04/18/20 06:21 Intake & Output 04/17/20 04/17/20 04/18/20 11:59 23:59 11:59 Intake Total 510 / 510 Output Total 150 / 150 Balance 360 / 360 Weight 55.5 kg Intake: IV 510 / 510 Output: Estimated Blood Loss 150 / 150 Data Completed and Pending Labs on day of discharge: Labs from last 24 hours 04/18/20 06:50 Sodium 134 L Potassium 4.2 Chloride 101 Carbon Dioxide 22.5 Anion Gap 10.5 BUN 10 Creatinine 0.82 Estimated GFR/1.73 m2 >= 60.00 Glucose 96 Calcium 9.6 PFSH Medical History Anemia Essential hypertension Hyperlipidemia Hypothyroidism Plantar fascial fibromatosis of right foot Pulmonary fibrosis Pt. states it has been put by the wayside because I score so well on the tests, and doctor states they don't hear it anymore, and it was related to a pneumonia at one point and time, and now they say it isn't a problem. 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 Sister Depression Brother , AGE 67 Lung cancer Social History Smoking/Tobacco Use Status: Former Tobacco Use Tobacco: How many years used: 15 Smoking risk assessment performed?: Yes Alcohol Intake: current Alcohol Intake frequency: 0-2 drinks per day Alcohol type: beer Drug use: Never Substance use type: marijuana Household members: other Details: 3 Pets and animals: Yes Pets and animals: cat(s), dog(s), horse(s) and farm animals Duration: decline to answer Frequency: daily Lluvia/Yazidism: Episcopalian Special lluvia needs: No Seatbelt use: sometimes Helmet use: Yes Do you feel safe at home: Yes Do you feel safe in your relationship?: Yes Documented by User: Bo Noland MD 04/18/20 13:43 Date of service: 04/18/20 Time of Service: 13:42 Discharge Plan Disposition Patient Disposition: HOME Condition: Good Discharge Details Reason For Visit: right hip DJD Attending Provider: Bo Noland Primary Care Provider: Bryan Pulliam [place] Meds and New Rx's Prescriptions: New acetaminophen 500 mg tablet 500 mg PO Q6H PRN (Reason: pain) Qty: 60 RF: 2 aspirin 81 mg tablet,delayed release (DR/EC) 81 mg PO BID 30 Days Qty: 60 RF: 0 celecoxib [Celebrex] 200 mg capsule 200 mg PO BID Qty: 30 RF: 0 pantoprazole 40 mg tablet,delayed release (DR/EC) 40 mg PO DAILY 30 Days Qty: 30 RF: 0 docusate sodium [Colace] 100 mg capsule 100 mg PO BID Qty: 30 RF: 0 Continued antiarthritic combination no.2 [glucosamine-chondroitin] 900 mg tablet PO DAILY RF: 0 vitamin B complex Tablet 1 tab PO DAILY PRNRF: 0 levothyroxine 112 mcg capsule 112 mcg PO DAILY Qty: 90 RF: 3 atorvastatin 20 mg tablet 20 mg PO QHS Qty: 30 RF: 11 losartan 50 mg tablet 100 mg PO DAILY Qty: 90 RF: 3 amlodipine 5 mg tablet 5 mg PO DAILY Qty: 30 RF: 11 Discontinued aspirin [Adult Aspirin Regimen] 81 mg tablet,delayed release (DR/EC) 81 mg PO DAILY Qty: 90 RF: 3 ibuprofen 600 mg tablet 600 mg PO Q6H PRN (Reason: post op pain) Qty: 40 RF: 0 Discharge Instructions Additional Instructions: Total Hip Discharge Instructions Activity: The most important activity is to walk. You should try to take short walks a few times a day. You have no restrictions on movement or positioning, but do not try to force what you do. You will find some stiffness and weakness with hip flexion (lifting your knee). Do not try to strengthen this too early, continue to practice walking and stairs and this will come. - Outpatient physical therapy can be helpful to help return you to a normal gait and improve your flexibility and strength. This can start around 2 weeks. For some patients, it?s not necessary. Usually this is determined at the time of discharge or at the first post-operative visit. - You should wear the BAYLEE hose on both legs for 2 weeks. Dressing: Keep the surgical dressing in place for at least one week. After the first week it may be removed and replace with light gauze and tape or nothing. It may get wet after 3 days but avoid soaking the dressing. If it gets wet, just lightly pat dry. It is important to always keep some gauze between skin folds, especially when you are sitting. Spend some time with the wound exposed when you are lying flat as the incision does wrinkle onto itself. Medications: - You should take Tylenol and an anti-inflammatory Celebrex as your primary pain control medications. If the Celebrex is too expensive or not covered, please call the office for another alternative (Advil/Ibuprofen or Naproxen/Aleve). - You had previously been prescribed a stronger pain medication Oxycodone by your PCP for breakthrough pain, take as needed as prescribed. - You have also been prescribed a stomach acid reduction agent Pantoprozole to help reduce stomach acid and reflux. - You will be taking Aspirin 81mg twice a day for DVT prevention unless i nstructed otherwise. - If you have constipation you should take Colace (which was prescribed) or Miralax (which you may purchase [id number]). It takes most people 3-4 days to have a bowel movement. Follow-up: 2 weeks If you have any acute concerns or questions, please do not hesitate to contact the office at [phone]. You may contact Dr. Noland with any questions after hours through the hospital at [phone] or on his cell phone at [phone]. Referrals: Bo Noland MD [ [facility] STAFF PHYSICIAN] - Activity:: Activity as Tolerated Remove Dressings/Wound Care:: 72 hours Shower/Bathe:: 72 hours Diet:: As Tolerated Discharge Orders Discharge Orders: Discharge Order (Routine); Ordered 04/18/20 Ordered By: Bo Noland DS: Summary Status at Discharge Functional status at discharge: uses cane/walker Overall status at discharge: patient is progressing back to baseline Mental Status: mental status grossly normal Speech and Movement: speech and movement normal Mood: congruent mood Affect: normal affect Exam Psych Mental Status: mental status grossly normal Speech and Movement: speech and movement normal Mood: congruent mood Affect: normal affect [facility] Medical History Anemia Essential hypertension Hyperlipidemia Hypothyroidism Plantar fascial fibromatosis of right foot Pulmonary fibrosis Pt. states it has been put by the wayside because I score so well on the tests, and doctor states they don't hear it anymore, and it was related to a pneumonia at one point and time, and now they say it isn't a problem. 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 Sister Depression Brother , AGE 67 Lung cancer Social History Smoking/Tobacco Use Status: Former Tobacco Use Tobacco: How many years used: 15 Smoking risk assessment performed?: Yes Alcohol Intake: current Alcohol Intake frequency: 0-2 drinks per day Alcohol type: beer Drug use: Never Substance use type: marijuana Household members: other Details: 3 Pets and animals: Yes Pets and animals: cat(s), dog(s), horse(s) and farm anima ls Duration: decline to answer Frequency: daily Lluvia/Yazidism: Episcopalian Special lluvia needs: No Seatbelt use: sometimes Helmet use: Yes Do you feel safe at home: Yes Do you feel safe in your relationship?: Yes
--- NOTE | 2020-04-18 12:30 | PT.INIE ---
Date of service: 04/19/20 Time of Service: 12:30 PT Notes Visit Reasons: right hip DJD Physical Therapy Inpatient Initial Evaluation Date: 04/18/2020 Referring Doctor: SOL Edgar PT Orders: PT CONSULT: Status post Ortho surgery Precautions: Fall. Standard. WBAT on right LE. Patient Profile/Admitting Diagnosis: Bushra is a 69-year-old female with avascular necrosis of the right femoral head and is status post right total hip arthroplasty on postoperative day 0. 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 Independent with all aspects of ADLs prior to surgery. No falls in the past 12 months. Equipment Owned/DME: [facility], [facility] Subjective: Agreeable to PT consult. Reports just a mild ache in the right hip throughout session. Denies headache, chest pain, and lightheadedness. Objective: General Observation: Supine in bed. Mepilex Ag over surgical incision. Cryo/Cuff over surgery site. TDS on bilateral legs. Mental Status: Alert and oriented x 4 Pain: 1/10 in the right hip Vital Signs: Within normal limits as closely monitored by nurse Mancia before during and after PT session ROM: Right Upper Extremity: Shoulder Flexion WFL. Shoulder abduction WFL. Elbow flexion WFL. Wrist flexion WFL. Opening and closing of hand WFL. Left Upper Extremity: Shoulder Flexion WFL. Shoulder abduction WFL. Elbow flexion WFL. Wrist flexion WFL. Opening and closing of hand WFL. Right Lower Extremity: Hip flexion WFL. Hip abduction WFL. Knee flexion WFL. Ankle dorsiflexion WFL. Ankle plantarflexion WFL. Left Lower Extremity: Hip flexion WFL. Hip abduction WFL. Knee flexion WFL. Ankle dorsiflexion WFL. Ankle plantarflexion WFL. Strength: Right Upper Extremity: Shoulder flexors 5/5. Shoulder abductors 5/5. Elbow flexors 5/5. Elbow extensors 5/5. Mixer Operator Tablets strong. Left Upper Extremity: Shoulder flexors 5/5. Shoulder abductors 5/5. Elbow flexors 5/5. Elbow extensors 5/5. Mixer Operator Tablets strong. Right Lower Extremity: Hip flexors 4/5. Hip abductors 4/5. Knee flexors 5/5. Knee extensors 5/5. Ankle dorsiflexors 5/5. Ankle plantarflexors 5/5. Left Lower Extremity:Hip flexors 5/5. Hip abductors 5/5. Knee flexors 5/5. Knee extensors 5/5. Ankle dorsiflexors 5/5. Ankle plantarflexors 5/5. Sensation: Intact as to pain and pressure on bilateral lower extremities. Bed Mobility/Transfers: Supine to sit independent Sit to supine independent Sit to stand independent Stand to sit independent Bed to chair supervision Chair to bed supervision Gait: Guided through level surface ambulation of 200 feet +100 feet using bilateral axillary crutches using three-point gait pattern with left foot able to step through the right during swing phase with with no difficulty. Also instructed on safe strategies for negotiating up and down 12 x 4 inch steps while holding onto rail on 1 side and a single-point cane on the other side using step to gait pattern without increase in pain level. THERA EX: Instructed on safe performance of a seated level range of motion exercises consisting of long arc quads x10 seated hip flexion x10 and ankle dorsiflexion plantarflexion x10 without undue difficulty. Balance: Static Sitting: Normal Dynamic Sitting: Normal Static Standing: Fair Dynamic Standing: Fair Special Tests: Mobility Limitations Standardized Measure [facility] AM-PAC 6 clicks Basic Mobility Inpatient Short Form: Raw Score: 23 CMS Score: 11% deficit Informed Consent/Education: Patient instructed in purpose of PT consult and plan of care. Assessment: Bushra demonstrates the need for bilateral axillary crutches to maximize independence with all mobility ADL performance and reduce fall risk. She is very motivated to go home today and is very happy she did well with mobility ADL performance without significant difficulty. Patient presents with clinical signs and symptoms consistent with current/admitting diagnoses that have resulted to mobility limitations, gait instability, generalized weakness, and impairment of motor control as demonstrated by the following impairment level findings: 1. Impaired activity tolerance Impairments are contributing to the following functional limitations: 3. Inability to safely ambulate without assistive device 4. Increase completion time for mobility ADL performance Patient is [place] a 42370 moderate complexity based on the following: History: 69 [id number] with impairment level findings, functional limitations, and past medical history as indicated above Examination: Demonstrable impairment in strength, balance, and mobility level with underlying impairments and functional limitations as documented above Presentation:Evolving Decision Makin moderate complexity Goals: N/A. PT evaluation and 1 treatment session only for functional mobility training using the front wheeled walker and for instruction on HEP. Plan of Care/Treatment Plan: N/A. PT evaluation and 1 treatment session only for functional mobility training using the front wheeled walker and for instruction on HEP. DISCHARGE RECOMMENDATIONS: Home when medically cleared by orthopedic surgeon. No equipment needs at this time. Outpatient physical therapy services in order to facilitate return to premorbid independent level without the use of an assistive device. TREATMENT CODE/TIME: 36351 x 30 minutes, 90489 x 10 minutes beginning at 12:30 PM. Thank you for the opportunity to participate in the care of this patient. Raissa Gonzalez PT, DPT, CLT [facility] [place], [place]
--- NOTE | 2020-04-18 17:02 | ROE_ITS ---
Date of service: 04/18/20 Time of Service: 09:02 Operative Note Operative Note DATE OF PROCEDURE: 04/18/20 PRE-OP DIAGNOSIS: Right Hip Osteoarthritis and Avascular Necrosis POST-OP DIAGNOSIS: same PROCEDURE: Right Anterior Total Hip Arthroplasty SURGEON: Bo Noland UMBRELLA FINISHER: Marcelle Souza ANESTHESIA: spinal ESTIMATED BLOOD LOSS: 150 PATHOLOGY: none sent TOURNIQUET TIME: 0 COMPLICATIONS: None Patient was transported to: PACU Patient's condition: stable Implants: 1. Depuy Brandon Acetabular Component, 48mm 2. Depuy Acetabular Liner, [id number] 3. Depuy Corail Standard 125 degree Collared Femoral Stem, Size 10 4. Depuy Altrx Ceramic Femoral Head, Size 32+9mm Indications: I have seen Bushra in clinic for symptoms of hip arthritis and avascular necrosis, confirmed with radiographic findings. She has exhausted nonoperative methods and was having significant limitations in daily function and desired better function and less pain. I discussed the technical details of a hip replacement. I explained the risks of the procedure to include, but not limited to, bleeding, infection, pain, stiffness, fracture, damage to nerves and vessels, damage to muscles and tendons, loosening, instability, leg length inequality, need for repeat procedure, blood clot and cardiopulmonary demise. Despite these risks, Bushra elected to proceed. Findings: There was significant signs of deformit of the superior femoral head with softened cartilage and obvious necrosis. Procedure Description: Bushra was greeted in the preoperative holding area where the correct side was identified and marked. The consent was reviewed with the patient and signed. The history and physical was updated. All questions were answered. She was taken back to the operating room. A spinal anesthestic was then administered. The feet were wrapped with cast padding and Coban and then placed into the boot liners and then into the boots. Care was taken to protect the skin and make sure the heels were fully down and the boots were stable. The patient was then positioned onto the HANA table. Both legs were held in a neutral position. SCDs were applied. The patient was then slid down onto a pe roneal post. A preoperative AP pelvis was obtained to serve as a reference for determining leg lengths. Prophylactic antibiotics in the form of Cefazolin were administered. 1g of Tranxemic Acid was given intravenously within 30 minutes of incision. The right leg was then prepped with Chloraprep and draped in a standard fashion. A second prep with Chloraprep was performed prior to placement of a shower-curtain type drape with Iodine impregnated skin protection. A timeout to confirm correct identity, side and site, procedure, allergies, anesthesia, and medical concerns was performed. An obliquely oriented incision was made starting lateral to the ASIS and running distal over the Tensor Fascia Lissy (TFL) muscle belly toward the fibular head, approximately 10cm. The skin and soft tissue was dissected sharply, through Marco?s fascia, and to the fascia of the TFL. With the fascia and superior border of the IT band identified, the fascia was incised with a new knife just above any perforators from the IT band. The TFL muscle belly was bluntly dissected away from the fascia and moved laterally. The fat between TFL and rectus was identified to ensure the dissection was not within the TFL. Blunt dissection created space between abductors and the capsule and retractor was placed over the lateral femoral neck. The fibers of the rectus femoris tendon were identified and these were freed from the anterior capsule. A second cobra retractor was placed around the medial femoral neck. The TFL was further retracted laterally to show the deep fascia. Careful dissection through this layer identified three main crossing vessels of the lateral femoral circumflex. These were cauterized in multiple locations and then cut without any noticeable bleeding. The TFL was further released bluntly from the deep fascia to expose anterior hip capsule and fat The Fred orthopaedic retractor was then placed beneath the TFL and against sartorius and medial soft tissues to protect and retract the soft tissues. A T-capsulotomy was then performed starting at the superior lateral acetabulum and moving distally to the intertrochanteric ridge. These capsular flaps were tagged with a No. 1 Ethibond and elevated from within. The capsular flaps were released to the shoulder of the lateral neck and to the lesser trochanter to give excellent visualization of the proximal femur. A neck osteotomy was performed using an oscillating saw based on preoperative templates. This cut started in the shoulder and of the lateral neck and exited medially. The saw was at all times directed medially to avoid injury to the greater trochanter. 6cm of traction was applied to the leg and the osteotomy opened. The femoral head was removed with a corkscrew, making sure to protect the TFL on its exit. Traction was released after head removal. This was measured on the back table to determine the starting reamer size. Portions of the rectus obscuring visualization were minimally elevated off the superior acetabulum. An anterior retractor was placed over the anterior wall between capsule and labrum and attached to the Gripper retraction system. The femur was rotated to 90 degrees and medial capsule was fully released until the lesser trochanter was palpable and visible; the femur was returned to 30 degrees. A posterior retractor was placed similarly between capsule and labrum. This provided excellent visualization. The contents of the cotyloid fossa were removed with electrocautery and the labrum was removed with a knife. Acetabular reaming began with a 44mm reamer. This first reaming was directed anterior to posterior and medial to get down to the true floor. This was inspected and reamed until the true floor was reached. The anterior retractor was then released and entry and exit was provided by traction on the capsular flaps. I then reamed sequentially up to a 48mm reamer where good fit was obtained. The larger reamers were oriented based on anatomical reference of the anterior and lateral [place] to ensure proper abduction and anteversion. Positioning and size was confirmed with the fluoroscopy. A 48mm Depuy Brandon acetabular component was selected. The acetabulum was reamed around the periphery with the selected acetabular size to prevent a rim fit. The deep tissues were irrigated. The acetabular component was then impacted in a position of about 40-45 degrees of abduction and 15-20 degrees of anteversion, using the patient?s anatomy as the ultimate landmark. Fluoroscopy was used to confirm this. There was excellent electronic semiconductor processor of the acetabular component and the inserting handle was removed. The acetabular liner, Depuy [id number] polyethylene liner, was inserted and lined up with the tines of the acetabular component. There was no soft tissue interposition. The liner was then impacted into position and confirmed to be well-seated. A portion of the lenore-articular cocktail was then injected around the acetabulum into the capsule and periosteum. This cocktail consisted of 50cc of 0.25% Bupivicaine and 20cc of Exparel and 30mg of Ketorolac. The leg was rotated to 120 degrees. Any remaining medial capsule was released until the lesser trochanter was easily palpable. A retractor was placed medially. The lateral capsule was further released into the shoulder to allow access to the greater trochanter. A Phillips retractor was placed over the greater trochanter which allowed the trochanter to flip in front of the capsule for excellent exposure. The leg was brought down into maximal extension and 20 degrees of adduction while ensuring there was no impingement on the acetabulum. Any remnant capsule within the trochanter was released. Piriformis and obturator externis were identified and protected. There was excellent access to the proximal femur. The lateral neck remnant was removed with a rongeur. A blunt canal probe was used to identify the canal and trajectory for later broaching. A box osteotome initiated the broach course. A small curved rasp and a curved curette were used to work laterally. Broaching then began with a size 8 Corail broach. This was inserted manually around the trochanter and into the canal before mallet blows. The broach was seated to a few millimeters below the cut level based on the neck cut and the preoperative template. Sequential broaching was continued with the Orbital Traction pneumatic broaching device until a tight fit was obtained with good rotational control of the femur. A trial standard 125 neck was inserted along with a +9 trial head. The leg was brought out of extension and adduction and then reduced with traction and internal rotation. The leg was stable anteriorly in a position of 30 degrees of extension and 90 degrees of external rotation. Fluoroscopy was used to ensure there was no fracture and the stem was seated well. Leg lengths were checked with an AP pelvis and pelvic reference points. [place] navigation system was used to confirm appropriate positioning and leg length and offset. Once content with the desired offset and leg lengths, the leg was brought back into extension, external rotation and adduction. The periosteum and surrounding tissue was injected with remaining portion of the lenore-articular cocktail. The proximal femur was irrigated as well as the deep tissues. The Depuy Corail standard collared 125 stem, size 10, was then manually inserted into the proximal femur making sure to control rotation. It was then malleted into position with light blows, giving breaks to allow bone expansion and decrease risk of fracture. The selected Depuy Altrx Ceramic Head, size 32+9mm, was then placed onto the clean and dry trunnion and secured with impaction onto the tapered fit. The leg was brought back out of extension and adduction and reduced with traction and internal rotation. Stability was confirmed with no shuck at 90 degrees of external rotation and 30 degrees of extension. No impingement throu gh range of motion arc. Final x-ray images were obtained with fluoroscopy to confirm adequate positioning and no intraoperative fracture. The deep tissues were thoroughly irrigated with Irrisept chlorhexadine solution. The second dose of TXA 1g was administered intravenously.The capsule was then reapproximated with the previously placed Ethibond sutures. The TFL fascia was finally closed with a No. 2 Stratafix, barbed suture. Deep tissues were then reapproximated with 0 Vicryl and a running 2-0 Vicryl. The skin was closed with a running 4-0 Monocryl in a subcuticular fashion. This was reinforced with skin glue. A Mepilex silver dressing was applied. At the end of the case, all counts were correct. Bushra was transferred to the hospital bed without difficulty and suffering no apparent complication. Bushra has a good prognosis. Physical therapy will start today and without restrictions, weight-bearing as tolerated. Aspirin 81mg BID will be used for DVT prophylaxis.
== END 2020-04-18 14:04 | disposition home or self-care (01) ==
PROVIDERS: PCP Family Medicine; Visit Provider Student in an Organized Health Care Education/Training Program
PROC: (CPT 27130; principal; 2020-04-18 07:30)
DX: M16.11 Unilateral primary osteoarthritis, right hip (principal); M87.051 Idiopathic aseptic necrosis of right femur; I10 Essential (primary) hypertension; E78.5 Hyperlipidemia, unspecified; E03.9 Hypothyroidism, unspecified; J84.10 Pulmonary fibrosis, unspecified
CPT/HCPCS: 27130; 20985; 80048; 97162; 97530; NC; 73501; J0690; J1885; J2001

== ENCOUNTER 2020-05-02 11:13 | Outpatient (CLI) | payer MEDICARE, BC, SELFPAY ==
--- NOTE | 2020-05-02 10:25 | DI.RAD_ITS ---
EXAM: XR HIP RT COMPLETE AP PELVIS CLINICAL HISTORY: 1st post op R VASQUEZ. TECHNIQUE: 2D digital imaging was performed. COMPARISON: CR XR HIP RT COMPLETE AP PELVIS from 02/09/2020 XR HIP RT IN OR from 04/18/2020 FINDINGS: BONES: There are stable post operative changes present. No fracture or dislocation. JOINTS: The joint spaces are well maintained. No joint effusion is present. SOFT TISSUE: Atherosclerosis. IMPRESSION: Stable postoperative changes. DATA REPOSITORY: RADIATION DOSE DELIVERED:
== END 2020-05-02 11:33 ==
PROVIDERS: PCP Family Medicine; Referring Provider Family Medicine; Visit Provider Physician Assistant
DX: Z96.641 Presence of right artificial hip joint (principal)
CPT/HCPCS: 73502

== ENCOUNTER 2020-05-11 10:35 | Outpatient (CLI) | payer MEDICARE, BC, SELFPAY ==
--- NOTE | 2020-05-11 10:00 | DI.RAD_ITS ---
EXAM: XR TIB/FIB RT CLINICAL HISTORY: acute injury. TECHNIQUE: 2D digital imaging was performed. COMPARISON: No exams were available for comparison FINDINGS: No evidence of osseous abnormality in the upper tibia and fibula including the tibial plateau. Findi ngs at the level of the ankle are discussed in the ankle report. There is prominent calcification ev ident in the soft tissues posteriorly which appears to be in the upper Achilles tendon-musculotendino us junction. Correlation with prior significant injury at this level is recommended. IMPRESSION: DATA REPOSITORY: RADIATION DOSE DELIVERED:
--- NOTE | 2020-05-11 10:00 | DI.RAD_ITS ---
EXAM: XR ANKLE RT COMPLETE CLINICAL HISTORY: acute injury. TECHNIQUE: 2D digital imaging was performed. COMPARISON: No exams were available for comparison FINDINGS: There is no evidence of acute fracture or widening of the mortise. However, on lateral view we note flattening of the talar dome and anterior talar beak proximally. There is also a subarticular degene rative cyst in the lateral aspect of the talar dome. Without osteophytes at the level of the tibial plafond and. There appears to be an element of generalized osteopenia. Also noted in the peripheral aspect of the field of view is dystrophic calcification in the upper Achilles tendon. Also some mil d calcification noted in the plantar fascia. IMPRESSION: Significant talar dome flattening seen on the lateral view. If clinically indicated follow-up MRI ca n be performed. There is no obvious acute fracture. Also some degenerative change in the subtalar j oint. Correlation with any history of prior significant trauma recommended. Thickened and calcified upper Achilles it. DATA REPOSITORY: RADIATION DOSE DELIVERED:
== END 2020-05-11 10:55 ==
PROVIDERS: PCP Family Medicine; Referring Provider Family Medicine; Visit Provider Physician Assistant Surgical
DX: M79.604 Pain in right leg (principal); S89.81XA Other specified injuries of right lower leg, initial encounter; S80.11XA Contusion of right lower leg, initial encounter; W23.0XXA Caught, crushed, jammed, or pinched between moving objects, initial encounter; Z47.1 Aftercare following joint replacement surgery; Z96.641 Presence of right artificial hip joint
CPT/HCPCS: 99213; 73590; 73610

== ENCOUNTER 2020-05-16 03:33 | Outpatient (CLI) | payer MEDICARE, BC, SELFPAY ==
[2020-05-16 11:16] LABS: HCT 31.9 % (36.0-46.0); MCH 33.8 pg (27.0-33.0); MCHC 34.5 % (32.0-36.0); MCV 98.2 fL (80-95); MPV 9.4 fL (8.0-11.0); Platelet Count 281 10^3/uL (130-400); RBC 3.25 10^6/uL (3.93-5.22); RDW 12.2 % (11.7-14.6); RDW-SD 43.9 fL; WBC 4.18 10^3/uL (4.4-10.8)
[2020-05-16 12:03] LABS: Anion Gap 6.6 mmol/L (3-11); BUN 8 mg/dL (7-18); CO2 25.4 mmol/L (21.0-32.0); CREATININE 0.77 mg/dL (0.55-1.02); Calcium 9.1 mg/dL (8.5-10.1); Chloride 95 mmol/L (98-107); Glucose 109 mg/dL (74-106); Potassium 4.7 mmol/L (3.5-5.1); Sodium 127 mmol/L (136-145); TSH 1.93 uIU/mL (0.36-3.74)
== END 2020-05-16 03:53 ==
PROVIDERS: Student in an Organized Health Care Education/Training Program; PCP Family Medicine; Visit Provider Family Medicine
DX: E03.9 Hypothyroidism, unspecified (principal); E87.1 Hypo-osmolality and hyponatremia; M25.551 Pain in right hip
CPT/HCPCS: 36415; 80048; 85027; 84443

== ENCOUNTER → 2020-06-01 09:44 | Outpatient (BNVA) | payer MEDICARE, BC, SELFPAY | PROVIDERS: PCP Family Medicine; Referring Provider Family Medicine; Visit Provider Student in an Organized Health Care Education/Training Program | DX: Z47.1 Aftercare following joint replacement surgery (principal); Z96.641 Presence of right artificial hip joint ==

== ENCOUNTER 2021-04-19 09:16 | Outpatient (CLI) | payer MEDICARE, BC, SELFPAY ==
--- NOTE | 2021-04-19 08:45 | DI.RAD_ITS ---
Exam(s) XR HIP RT AP LAT ONLY EXAM: XR HIP RT AP LAT ONLY CLINICAL HISTORY: annual f/u R VASQUEZ. TECHNIQUE: 2D digital imaging was performed. COMPARISON: Prior x-rays 05/02/2020 FINDINGS: Is stable position alignment of the components of the right hip prosthesis. No fracture or loosening evident. No radiographic evidence of osteomyelitis. Bone density is normal. IMPRESSION: DATA REPOSITORY: RADIATION DOSE DELIVERED:
--- NOTE | 2021-04-19 09:15 | DI.RAD_ITS ---
Exam(s) XR LUMBAR SPINE AP, LAT EXAM: XR LUMBAR SPINE AP, LAT CLINICAL HISTORY: eval LBP. TECHNIQUE: 2D digital imaging was performed. COMPARISON: No exams were available for comparison FINDINGS: No evidence of compression fracture. However, there is 10 millimeters anterior listhesis of L4 upon L5, this related to degenerative facet arthropathy. There is no disc space narrowing at this level b ut there is advanced disc space narrowing at L5-S1 level. Other disc spaces appear unremarkable. No osseous lesions. No scoliosis. Sacroiliac joints appear unremarkable. There is a right hip prosth esis. Calcification in the abdominal aorta is noted. IMPRESSION: Anterolisthesis L4 upon L5 (10 millimeters) on a degenerative basis. Advanced disc space narrowing at L5-S1 level. Other findings as above. DATA REPOSITORY: RADIATION DOSE DELIVERED:
== END 2021-04-19 09:17 | disposition home or self-care (01) ==
PROVIDERS: PCP Nurse Practitioner; Referring Provider Nurse Practitioner; Visit Provider Student in an Organized Health Care Education/Training Program
DX: M47.816 Spondylosis without myelopathy or radiculopathy, lumbar region; Z47.1 Aftercare following joint replacement surgery; Z96.651 Presence of right artificial knee joint; M43.16 Spondylolisthesis, lumbar region
CPT/HCPCS: 99213; 72100; 73502

== ENCOUNTER 2021-04-30 00:51 | Outpatient (CLI) | payer MEDICARE, BC, SELFPAY ==
--- NOTE | 2021-04-30 08:15 | DI.MRI_ITS ---
Exam(s) MR LUMBAR SPINE WO EXAM: MR LUMBAR SPINE WO CLINICAL HISTORY: low back pain, lumbar spondylosis, [id number]. TECHNIQUE: Multiplanar multisequence MRI of the Lumbar spine was performed. COMPARISON: CR XR LUMBAR SPINE AP, LAT from 04/19/2021 CR XR HIP RT AP LAT ONLY from 04/19/2021 CR XR HIP RT AP LAT ONLY from 04/19/2021 FINDINGS: Bones: The last intervertebral disc space is designated the L5/S1 level for the numbering purpose of this examination. The vertebral body heights are well maintained. Alignment is satisfactory. The si gnal characteristics are unremarkable. Cord: The conus tip ends at the T12 level. It is of normal size and signal intensity. T12-L1: No disc herniations or bulges are present. L1-2: No disc herniations or bulges are present. L2-3: Minimal disc bulging. L3-4: No disc herniations or bulges are present. L4-5: Mild loss of disc height. Mild some moderate posterior disc bulging. Prominent facet joint d egenerative changes and ligamentous hypertrophy combining to produce severe central canal stenosis. There is also bilateral moderate to severe neural foraminal narrowing. There is mild, grade 1 L4-5 s pondylolisthesis. L5-S1: Postsurgical changes of the disc. Left-sided laminectomy defect. Loss of disc height. Smal l endplate osteophytes. No significant central canal stenosis. Moderate right and moderate to sever e left neural foraminal narrowing. The visualized SI joints and sacrum are well maintained. Soft tissues: The urinary bladder is moderately distended. The paraspinal soft tissues are unremarka ble. IMPRESSION: Facet degenerative changes at L4-5 ligamentous hypertrophy as well as spondylo listhesis and disc bul ging cause severe central canal stenosis and bilateral neural foraminal narrowing. Postsurgical vega ges and bilateral neural foraminal narrowing at L5-S1. DATA REPOSITORY:
== END 2021-04-30 01:11 ==
PROVIDERS: PCP Nurse Practitioner; Visit Provider Student in an Organized Health Care Education/Training Program
DX: M47.816 Spondylosis without myelopathy or radiculopathy, lumbar region (principal); M43.16 Spondylolisthesis, lumbar region; M48.062 Spinal stenosis, lumbar region with neurogenic claudication; Z98.890 Other specified postprocedural states
CPT/HCPCS: 72148

== ENCOUNTER 2021-08-15 14:20 | Outpatient (CLI) | payer MEDICARE, BC, SELFPAY ==
[2021-08-15 14:26] VITALS: BP 146/88; PULSE 81; RESP 18; TEMP 36.6; O2SAT 97
--- NOTE | 2021-08-15 14:48 | DI.RAD_ITS ---
Exam(s) XR PAIN CLINIC LUMBAR SP 2V EXAM: XR PAIN CLINIC LUMBAR SP 2V CLINICAL HISTORY: Dx: Lumbar Spondylosis TECHNIQUE: 2D and realtime digital imaging was performed. Radiologist not present. CONTRAST MATERIAL: None. COMPARISON: No exams were available for comparison FINDINGS: Fluoroscopy was provided for pain management therapy. Please refer to procedure report or details. Cumulative dose: Ka,r=6.5 mGy IMPRESSION: RADIATION DOSE DELIVERED:
--- NOTE | 2021-08-15 14:51 | PDOC.PAIN ---
Pain Clinic Procedure Note Procedure Note Procedure Note: Lumbar/Sacral Medial Branch Blocks #1 Bushra Coko has been referred to the [facility] for lumbar/sacral medial branch blocks. COMMENTS: I evaluated her in the office on 07/04/21. Her pre-procedure pain VAS was 8/10. Dx: Lumbosacral Spondylosis without myelopathy Patient was interviewed and the medical record reviewed. There were no medical, pharmacologic, radiographic or other structural contraindications to attempting fluoroscopically guided local anesthetic lumbar/sacral medial branch blocks. Risks and expected side effects as well as potential benefit of the procedure were reviewed and voiced concerns addressed. The printed consent form was signed and witnessed. Standard time-out procedure was performed. Patient was placed in the prone position on the fluoroscopy table and automated blood pressure cuff and pulse oximeter applied. The skin entry points for approaching the anatomic target points of the segmental medial branches of bilateral L3-L5 were identified with anfluoroscopy and marked. Following thorough Chlorhexadine preparation of the skin and draping and 1% lidocaine infiltration of the skin entry points and subcutaneous tissues, a 22 gauge spinal needle was placed under fluoroscopic guidance down on to the target point for each respective segmental medial branch.Position was confirmed in A/P, oblique and lateral views with 0.25ml of omnipaque 240. At this point I injected 0.5ml 0.5% Bupivacaine at each segmental sensory nerve. Vital signs were stable throughout the procedure and were as recorded in the docflowsheet by the nursing staff. Follow up plans and appointments were discussed and was instructed to keep careful note of how the usual pain was modified by these injections. Specifically was asked to keep a pain diary for the next 24 hours using a numeric pain scale of 0-10 and report these results at the follow-up visit. Post procedure instruction was given as documented in the nursing documentation and having met discharge criteria. Patient was discharged from the [facility]. Based on the medial branches blocked today, if the patient has adequate relief and we are able to proceed to radiofrequency ablation, the treatment should result in the denervation of the bilateral L4-L5 and L5-S1 FACET JOINTS. We would expect to denervate a total of 4 facets during the radiofrequency ablation. COMMENTS: Her post procedure pain VAS was 0/10. Mathew Nayak DO, MPH [facility]-Pain Management [facility] CC: Dena Yusuf, PhD EXTERNAL RELATIONS MANAGER
[2021-08-15 14:57] VITALS: BP 154/93; PULSE 86; RESP 14; O2SAT 97
[2021-08-15] MEDS: Bupivacaine 0.5% Pres-Free 10 ML VIAL IJ (15:03)
[2021-08-15] MEDS: Omnipaque 240 MG/ML 50 ML BTL IJ (15:03)
== END 2021-08-15 14:21 | disposition home or self-care (01) ==
LOC: PC 14:21
PROVIDERS: PCP Nurse Practitioner; Visit Provider Preventive Medicine Occupational Medicine
DX: M47.817 Spondylosis without myelopathy or radiculopathy, lumbosacral region (principal)
CPT/HCPCS: 64493; 64494; 72100; Q9967

== ENCOUNTER 2021-10-04 08:08 | Outpatient (CLI) | payer MEDICARE, BC, SELFPAY ==
[2021-10-04 08:26] VITALS: BP 151/86; PULSE 64; RESP 16; TEMP 36.1; O2SAT 100
--- NOTE | 2021-10-04 08:58 | DI.RAD_ITS ---
Exam(s) XR PAIN CLINIC LUMBAR SP 2V EXAM: XR PAIN CLINIC LUMBAR SP 2V CLINICAL HISTORY: Dx: Lumbar Spondylosis TECHNIQUE: 2D and realtime digital imaging was performed. CONTRAST MATERIAL: Refer to procedure report. COMPARISON: No exams were available for comparison FINDINGS: Fluoroscopy was provided for Dr. Nayak during the performance of a lumbar medial branch block. Alejandra camacho refer to the procedure report for complete details. Ka,r=7.13 mGy IMPRESSION:
[2021-10-04] MEDS: Omnipaque 240 MG/ML 50 ML BTL IJ ×2 (09:01→09:02)
[2021-10-04] MEDS: Lidocaine 2% Multi-Dose 20 ML VIAL IJ (09:01)
--- NOTE | 2021-10-04 09:08 | PDOC.PAIN ---
Pain Clinic Procedure Note Procedure Note Procedure Note: PROCEDURE NOTE LUMBAR MEDIAL BRANCH DIAGNOSTIC BLOCKS Date of Service: October 04, 2021 Patient: Bushra Cook Provider: Mathew Nayak DO, MPH Diagnosis: Lumbosacral Spondylosis without Myelopathy Post-operative diagnosis: Same Pre-procedure pain: VAS= 7/10 Pre-procedure Note History and Exam: Patient demonstrates today moderate to severe non- radicular back pain without neurologic deficit aggravated by hyperextension Yes Back pain greater than leg pain Yes Patient today has tenderness over the suspected joint(s) Yes History of post-traumatic injury No Hypertrophic arthropathy Yes Back pain associated with suspected motion segment instability or Hypermobility or pseudoarthrosis No Pre-testing pain score (VAS): 7/10 Previous medial branch block testing?: yes - She did great with LMBB #1 on 08/15/21. Today's Operative Note Bushra Cook was greeted by the nurse who verified the patients name and . Patient was then taken to the fluoroscopy suite. Bushra was interviewed and the medical record was reviewed. There were no medical contraindications to performing the bilateral lumbar medial branch nerve blocks. I first had a talk with the patient and discussed the potential risks, benefits, side effects, and alternatives of this procedure including but not limited to increased pain from the procedure, no pain relief, nerve damage, infection, and bleeding. She comprehended my conversation and accepts the risks and understands the goals of this diagnostic procedure. All questions and concerns from the patient were addressed. After I was comfortable that the patient was fully informed about this procedure, the printed consent form was signed. Standard time-out procedure was performed Bushra was placed in the prone position on the fluoroscopy table and automated blood pressure cuff and pulse oximeter were applied. The anatomic target points of the segmental medial branches of the bilateral L3-L5 were identified with fluoroscopy. Following thorough Chlorhexadine preparation of the skin and draping, a 25 gauge 3.5 spinal needle was placed under fluoroscopic guidance down on to the target point for each respective segmental medial branch.Position was confirmed in A/P, oblique and lateral views and 0.25 mls of Omnipaque-240 at each segmental nerve. At each level we injected 0.5ml of Lidocaine 2%. Bushra 's vital signs were stable throughout the procedure and were as recorded in the docflowsheet by the nursing staff. Postoperatively, today patient demonstrates the following changes with hyperextension and with tenderness over the suspected joint(s). Provacative testing using the Louis's facet loading test Right side Left side Directly before the block VAS (0-10) = 7/10 VAS (0-10) = 7/10 5 minutes after the block VAS (0-10) = 0/10 VAS (0-10) = 0/10 Percentage relief obtained with this diagnostic block 100% 100% Any improved physical functioning directly after the blocks? Able to bend and move without pain Next, Bushra was asked to record the percent pain relief and any changes in provocative maneuvers for the next 4 hours. She will report this information at the next business day to one of our nurses. Based on the medial branches blocked today, if the patient meets insurance criteria for radiofrequency, the treatment should result in the denervation of the bilateral L4-L5 and L5-S1 facet joint nerves. We would expect to denervate a total of 4 facets during the radiofrequency ablation. Discharge plan:: She will call back with @HIS@ 0-4 hour post-procedure pain scores. Post-procedure pain: VAS= 0/10. I personally performed the entire procedure. Mathew Nayak DO, MPH ABPMR-subspecialty board certification in Pain Medicine Attending Physician - Pain Management
[2021-10-04 09:09] VITALS: BP 159/89; PULSE 79; RESP 12; O2SAT 100
== END 2021-10-04 08:09 | disposition home or self-care (01) ==
LOC: PC 08:09
PROVIDERS: PCP Nurse Practitioner; Visit Provider Preventive Medicine Occupational Medicine
DX: M47.817 Spondylosis without myelopathy or radiculopathy, lumbosacral region (principal); M54.50 Low back pain, unspecified
CPT/HCPCS: 64493; 64494; 72100; J3490; Q9967

== ENCOUNTER 2021-10-25 11:06 | Outpatient (CLI) | payer MEDICARE, BC, SELFPAY ==
--- NOTE | 2021-10-25 06:00 | DI.RAD_ITS ---
Exam(s) XR PAIN CLINIC LUMBAR SP 2V EXAM: XR PAIN CLINIC LUMBAR SP 2V CLINICAL HISTORY: Dx: Lumbar Spondylosis TECHNIQUE: 2D and realtime digital imaging was performed. Radiologist not present. CONTRAST MATERIAL: None. COMPARISON: No exams were available for comparison FINDINGS: Fluoroscopy was provided for pain management therapy. Please refer to procedure report or details. Cumulative dose: Ka,r=10.65 mGy IMPRESSION: RADIATION DOSE DELIVERED:
[2021-10-25 11:17] VITALS: BP 167/83; PULSE 79; RESP 14; TEMP 36.3; O2SAT 100
[2021-10-25] MEDS: fentaNYL 100 MCG/2 ML VIAL IVP ×2 (11:57→12:04)
[2021-10-25] MEDS: Midazolam 2 MG/2 ML VIAL IVP (11:58)
[2021-10-25] MEDS: Lactated Ringers 500 ML 80 ML IV (12:46)
[2021-10-25 12:47] VITALS: BP 134/75; PULSE 75; RESP 13; O2SAT 100
--- NOTE | 2021-10-25 12:57 | PDOC.PAIN ---
Pain Clinic Procedure Note Procedure Note Procedure Note: Bilateral Lumbar Radiofrequency with Coolief Machine PROCEDURE NOTE Date of Service: October 25, 2021 Patient: Bushra Cook Provider: Mathew Nayak DO, MPH Pre Operative Diagnosis: Lumbosacral Spondylosis without Myelopathy Post Operative Diagnosis: Same Post procedure pain; VAS= 8/10 PROCEDURE: Radiofrequency Ablation of medial branches - Bilateral L3 L4 L5 and lateral branches of bilateral S1. Bushra Cook was brought into the fluoroscopy suite and positioned into the prone position on the fluoroscopy table and allowed to adjust to a position of comfort. A grounding pad was placed on the right thigh. The lumbar region was widely prepped with a chloraprep solution, allowed to air dry and draped in standard sterile surgical fashion. Local anesthesia was provided by 4 mL of 2% Lidocaine delivered with a 25g needle. A 17g 100 mm radiofrequency introducer needle was placed to the planned anatomic targets guided with intermittent fluoroscopy with a perpendicular approach to terminally place at the junction of the superior articular process and the transverse process of the bilateral L4 L5, the base of the bilateral sacral ala for the L5 medial branch nerve and the area between base of the sacral ala to the S1 foramen bilaterally. The stylets were removed and radiofrequency probes with a 4mm active tip were then inserted. Needle tip position of the probes was verified in the AP, oblique, and lateral views. At each site, the medial branch nerve was stimulated at 2 Hz to a maximum 1-2 volts determined to finalize safe needle and electrode placement. The patient was awake and responsive during this portion of the procedure. Each target was anesthetized with 1-2 mL of 2% Lidocaine for anesthesia for lesioning and then each target was lesioned at 80 degrees Celsius for 2 minutes and 30 seconds. Tissue impedences were noted to be between 250 and 500 Ohms. Electrodes and needles were then removed and bandages placed over the needle placement sites, the patient then returned to the supine position on a stretcher and transported to the recovery room without hemodynamic, neurologic, or allergic reactions. Fluoroscopic images were printed for hard copy recording and digitally archived. POST PROCEDURE EVALUATION: IMPRESSION: 1. Summary of procedure. Medication given is documented in the MAR. 2. The patient will be contacted in 1-3 weeks 3. Estimated Blood Loss: <5 mls 4. Fluoroscopy time: Documented in the EMR. Follow up plans and appointments were discussed with the Bushra . Post procedure instruction was given as documented in nursing documentation and having met discharge criteria, Bushra was discharged from the [facility] Management Center. COMMENTS: No apparent complications. Post-procedure pain: VAS= 4/10. F/U with our office as needed. Mathew Nayak DO, MPH [facility]-Pain Management [facility]
[2021-10-25] MEDS: methylPREDNISolone ACETATE 40 MG/ML VIAL IJ (13:02)
[2021-10-25] MEDS: Bupivacaine 0.5% Pres-Free 30 ML VIAL IJ (13:03)
[2021-10-25] MEDS: Lidocaine 2% Multi-Dose 20 ML VIAL (13:03)
== END 2021-10-25 11:07 | disposition home or self-care (01) ==
LOC: PC 11:07
PROVIDERS: PCP Nurse Practitioner; Visit Provider Preventive Medicine Occupational Medicine
DX: M47.817 Spondylosis without myelopathy or radiculopathy, lumbosacral region (principal); M54.50 Low back pain, unspecified
CPT/HCPCS: 64635; 64636; 72100; J1030; J2250; J3010; J3490

== ENCOUNTER 2022-06-07 01:18 | Outpatient (CLI) | payer MEDICARE, BC, SELFPAY ==
[2022-06-07 09:24] LABS: Anion Gap 6.8 mmol/L (3-11); BUN 9 mg/dL (7-18); CO2 27.2 mmol/L (21.0-32.0); CREATININE 0.7 mg/dL (0.55-1.02); Calcium 9.8 mg/dL (8.5-10.1); Chloride 100 mmol/L (98-107); Estimated GFR 93.56 (mL/min/1.73m2); Glucose 99 mg/dL (74-106); Potassium 4.3 mmol/L (3.5-5.1); Sodium 134 mmol/L (136-145)
== END 2022-06-07 01:19 | disposition home or self-care (01) ==
PROVIDERS: PCP Family Medicine; Visit Provider Family Medicine
DX: E87.1 Hypo-osmolality and hyponatremia (principal)
CPT/HCPCS: 36415; 80048

== ENCOUNTER 2022-09-11 15:42 | Outpatient (CLI) | payer MEDICARE, BC, SELFPAY ==
[2022-09-11 13:23] VITALS: BP 184/97; PULSE 79; RESP 20; TEMP 36.6; O2SAT 100
[2022-09-11] MEDS: fentaNYL 100 MCG/2 ML VIAL IVP ×2 (13:50→13:58)
[2022-09-11] MEDS: Midazolam 2 MG/2 ML VIAL IVP (13:50)
[2022-09-11] MEDS: Lactated Ringers 500 ML 80 ML IV (13:51)
--- NOTE | 2022-09-11 14:28 | DI.RAD_ITS ---
Exam(s) XR PAIN CLINIC LUMBAR SP 2V EXAM: XR PAIN CLINIC LUMBAR SP 2V CLINICAL HISTORY: Dx: Lumbar Spondylosis TECHNIQUE: 2D and realtime digital imaging was performed. CONTRAST MATERIAL: Refer to procedure report. COMPARISON: No exams were available for comparison FINDINGS: Fluoroscopy was provided for Dr. Nayak during the performance of a lumbar radiofrequency ablation. P lease refer to the procedure report for complete details. Ka,r=11 mGy IMPRESSION:
[2022-09-11 14:34] VITALS: BP 206/98; PULSE 88; RESP 18; O2SAT 99
[2022-09-11 14:37] VITALS: BP 162/100
--- NOTE | 2022-09-11 14:43 | PDOC.PAIN_ITS ---
Date of service: 09/11/22 Time of Service: 15:00 Pain Managment Procedure Note Procedure Note Procedure Note: Bilateral Lumbar Radiofrequency with Coolief Machine PROCEDURE NOTE Date of Service: September 11, 2022 Patient: Bushra Cook Provider: , ALESSANDRO Pre Operative Diagnosis: Lumbosacral Spondylosis without Myelopathy Post Operative Diagnosis: Same Post procedure pain; VAS= 7/10 Comments: She last had this procedure on 10/25/21 with 70% pain reduction for 7 months. PROCEDURE: Radiofrequency Ablation of medial branches - Bilateral L3 L4 L5 and lateral branches of bilateral S1. Bushra Cook was brought into the fluoroscopy suite and positioned into the prone position on the fluoroscopy table and allowed to adjust to a position of comfort. A grounding pad was placed on the left abdomen. The lumbar region was widely prepped with a chloraprep solution, allowed to air dry and draped in standard sterile surgical fashion. Local anesthesia was provided by 4 mL of 2% Lidocaine delivered with a 25g needle. A 17g 100 mm radiofrequency introducer needle was placed to the planned anatomic targets guided with intermittent fluoroscopy with a perpendicular approach to terminally place at the junction of the superior articular process and the trans verse process of the bilateral L4 L5, the base of the sacral ala on the bilateral for the L5 medial branch nerve and the area between base of the sacral ala to the S1 foramen bilaterally. The stylets were removed and radiofrequency probes with a 4mm active tip were then inserted. Needle tip position of the probes was verified in the AP, oblique, and lateral views. At each site, the medial branch nerve was stimulated at 2 Hz to a maximum 1-2 volts determined to finalize safe needle and electrode placement. The patient was awake and responsive during this portion of the procedure. Each target was anesthetized with 1-2 mL of [] % [] for anesthesia for lesioning and then each target was lesioned at 80 degrees Celsius for 2 minutes and 30 seconds. I then injected 1/4 cc of Depomedrol (40mg/cc) followed by 1 cc of 0.5% Bupivacaine. The needles were then removed without difficulty. Tissue impedences were noted to be between 250 and 500 Ohms. Electrodes and needles were then removed and bandages placed over the needle placement sites, the patient then returned to the supine position on a stretcher and transported to the recovery room without hemodynamic, neurologic, or allergic reactions. Fluoroscopic images were printed for hard copy recording and digitally archived. POST PROCEDURE EVALUATION: IMPRESSION: 1. Summary of procedure. Medication given is documented in the MAR. 2. The patient will be contacted in 1-3 weeks 3. Estimated Blood Loss: <5 mls 4. Fluoroscopy time: Documented in the EMR. Follow up plans and appointments were discussed with the Bushra . Post procedure instruction was given as documented in nursing documentation and having met discharge criteria, Bushra was discharged from the Pain Management Center. COMMENTS: No apparent complications. Post-procedure pain: VAS= 1/10. F/U with our office as needed. Mathew Nayak DO, MPH [facility]-Pain Management [facility]-Center for Pain Management
[2022-09-11] MEDS: methylPREDNISolone ACETATE 40 MG/ML VIAL IJ (14:55)
[2022-09-11] MEDS: Bupivacaine 0.5% Pres-Free 10 ML VIAL IJ (14:55)
[2022-09-11] MEDS: Lidocaine 2% Pres-Free 5 ML VIAL IJ (14:56)
== END 2022-09-11 15:43 | disposition home or self-care (01) ==
LOC: PC 15:42
PROVIDERS: PCP Family Medicine; Visit Provider Preventive Medicine Occupational Medicine
DX: M47.817 Spondylosis without myelopathy or radiculopathy, lumbosacral region (principal); M54.50 Low back pain, unspecified
CPT/HCPCS: 64635; 64636; 72100; J1030; J2250; J3010

== ENCOUNTER 2023-05-28 12:59 | Outpatient (CLI) | payer MEDICARE, BC, SELFPAY ==
--- NOTE | 2023-05-28 06:00 | DI.RAD_ITS ---
Exam(s) XR PAIN CLINIC LUMBAR SP 2V EXAM: XR PAIN CLINIC LUMBAR SP 2V CLINICAL HISTORY: Dx: Lumbar Spondylosis. TECHNIQUE: Fluoroscopy was provided for the referring physician for guidance with performing pain cl inic injection procedure. COMPARISON: No exams were available for comparison FINDINGS: Please see procedure note for details. Fluoro time: 64.8 seconds RADIATION DOSE DELIVERED: kaylyn Tavarez=8.58 mGy
[2023-05-28 13:09] VITALS: BP 179/84; PULSE 79; RESP 20; TEMP 36.7; O2SAT 96
--- NOTE | 2023-05-28 14:12 | PDOC.PAIN_ITS ---
Date of service: 05/28/23 Time of Service: 14:12 Pain Managment Procedure Note Procedure Note Procedure Note: PROCEDURE NOTE BILATERAL LUMBAR RADIOFREQUENCY ABLATION Date of Service: May 28, 2023 Patient:? Bushra Cook? Provider:? Mathew Nayak DO, MPH Bushra Cook has been referred to the [facility] for Bilateral Lumbar Radiofrequency Ablation with the [employer] Machine.? Pre Operative Diagnosis: Lumbosacral Spondylosis without Myelopathy Post Operative Diagnosis: Same Pre procedure pain; VAS= 7/10 Comments: She had >6 months of >50% pain relief with her last RFA in September of 2022. PROCEDURE: Radiofrequency Ablation of medial branches - bilateral L3, L4, L5 and lateral branches of bilateral S1. Bushra?was interviewed and the medical record was reviewed.? There were no medical, pharmacologic, radiographic or other structural contraindications to attempting fluoroscopically guided BILATERAL Lumbar Radiofrequency Ablation.?Risks and expected side effects as well as potential benefit of the procedure were reviewed with Bushra, and the patient's voiced concerns were addressed.? The printed consent form was signed.? Standard time-out procedure was performed. Bushra was brought into the fluoroscopy suite and positioned into the prone position on the fluoroscopy table and allowed to adjust to a position of comfort. A grounding pad was placed on the left abdomen. The sterile field was prepared using chlorhexidine preparation of the skin and sterile draping. Local anesthesia superficial and deep was provided by local infiltration of 2% lidocaine. A 17g 75 mm radiofrequency introducer needle was placed to the planned anatomic targets guided with intermittent fluoroscopy with a perpendicular approach to terminally place at the junction of the superior articular process and the transverse process of the bilateral L4, L5, the base of the sacral ala on the bilateral for the L5 medial branch nerve and the area between base of the sacral ala to the S1 foramen bilaterally. The stylets were removed and radiofrequency probes with a 4mm active tip were then inserted. Needle tip position of the miki nolasco was verified in the AP, oblique, and lateral views. At each site, the medial branch nerve was stimulated at 2 Hz to a maximum 1-2 volts determined to finalize safe needle and electrode placement. The patient was awake and responsive during this portion of the procedure. Each target was anesthetized with 1-2 mL of 2 % Lidocaine for anesthesia for lesioning and then each target was lesioned at 80 degrees Celsius for 2 minutes and 30 seconds. Tissue impedances were noted to be between 250 and 500 Ohms. There was no unusual discomfort expressed by Bushra. The needles were withdrawn without difficulty and bandages placed over the needle placement sites, the patient was observed and was without hemodynamic, neurologic, or allergic reactions. Fluoroscopic images were digitally archived. POST PROCEDURE EVALUATION: IMPRESSION: 1. Summary of procedure. Medication given is documented in the MAR. 2. Follow up plan: Bushra to contact [facility] as needed.?This procedure may be repeated if the patient achieves at least 50% improvement in pain/function for at least 6 months. 3. Estimated Blood Loss: <5 mls 4. Fluoroscopy time: Documented in the EMR. Follow up plans and appointments were discussed with the Bushra. Post procedure instruction was given as documented in nursing documentation and having met discharge criteria, Bushra was discharged from the [facility]. COMMENTS: No apparent complications. Post-procedure pain: VAS= 0/10. I personally completed the entire procedure. MATHEW NAYAK DO, MPH ABPM&R - Subspecialty board certification in Pain Medicine [facility] [facility]
[2023-05-28] MEDS: methylPREDNISolone ACETATE 40 MG/ML VIAL IJ (14:16)
[2023-05-28] MEDS: Nerve Block Tray 1 EACH MC (14:16)
[2023-05-28] MEDS: Lidocaine 2% Pres-Free 5 ML VIAL IJ (14:19)
[2023-05-28 14:29] VITALS: BP 183/111; PULSE 78; RESP 16; O2SAT 95
[2023-05-28] MEDS: Midazolam 2 MG/2 ML VIAL IVP (14:33)
[2023-05-28] MEDS: Lactated Ringers 500 ML 80 ML IV (14:33)
[2023-05-28] MEDS: Bupivacaine 0.5% Pres-Free 10 ML VIAL IJ (14:34)
[2023-05-28] MEDS: fentaNYL 100 MCG/2 ML VIAL IVP (14:34)
== END 2023-05-28 13:00 | disposition home or self-care (01) ==
LOC: PC 12:59
PROVIDERS: PCP Family Medicine; Visit Provider Preventive Medicine Occupational Medicine
DX: M54.50 Low back pain, unspecified (principal); M47.817 Spondylosis without myelopathy or radiculopathy, lumbosacral region
CPT/HCPCS: 00123; 64635; 64636; 72100; J0665; J1030; J2250; J3010

== ENCOUNTER 2024-01-08 13:39 | Outpatient (REF) | payer MEDICARE, BC, SELFPAY ==
[2024-01-08 15:08] LABS: C & S Indicated? C&S Done As Ordered; WBC >50 HPF (0-5)
== END 2024-01-08 13:40 | disposition home or self-care (01) ==
LOC: LBN 13:39
PROVIDERS: PCP Family Medicine; Visit Provider Nurse Practitioner Family
DX: R30.0 Dysuria (principal); R35.0 Frequency of micturition; R82.998 Other abnormal findings in urine
CPT/HCPCS: 87077; 81015; 87086

== ENCOUNTER 2024-02-12 07:19 | Outpatient (CLI) | payer MEDICARE, BC, SELFPAY ==
[2024-02-12] VITALS (14 sets, daily range): BP systolic 161–201; BP diastolic 86–119; PULSE 71–77; RESP 13–20; TEMP 36.7; O2SAT 96–99
[2024-02-12] MEDS: fentaNYL 100 MCG/2 ML VIAL IVP ×2 (08:46→08:55)
[2024-02-12] MEDS: Midazolam 2 MG/2 ML VIAL IVP (08:46)
[2024-02-12] MEDS: Lactated Ringers 500 ML 80 ML IV (08:49)
--- NOTE | 2024-02-12 09:25 | DI.RAD_ITS ---
Exam(s) XR PAIN CLINIC LUMBAR SP 2V EXAM: XR PAIN CLINIC LUMBAR SP 2V CLINICAL HISTORY: DX: Lumbar Spondylosis TECHNIQUE: 2D and realtime digital imaging was performed. CONTRAST MATERIAL: Refer to procedure report. COMPARISON: No exams were available for comparison FINDINGS: Fluoroscopy was provided for Dr. Nayak during the performance of a bilateral radiofrequency ablation. Please refer to the procedure report for complete details. Ka,r=10.4 mGy IMPRESSION: RADIATION DOSE DELIVERED: 0.0 0.0 0
[2024-02-12] MEDS: Bupivacaine 0.5% Pres-Free 10 ML VIAL IJ (09:39)
[2024-02-12] MEDS: Lidocaine 2% Multi-Dose 20 ML VIAL IJ (09:39)
[2024-02-12] MEDS: methylPREDNISolone ACETATE 40 MG/ML VIAL IJ (09:40)
[2024-02-12] MEDS: Nerve Block Tray 1 EACH MC (09:43)
--- NOTE | 2024-02-12 12:31 | PDOC.PAIN ---
Date of service: 02/12/24 Time of Service: 09:15 Pain Managment Procedure Note Procedure Note Procedure Note: PROCEDURE NOTE BILATERAL LUMBAR RADIOFREQUENCY ABLATION Date of Service: February 12, 2024 Patient:? Bushra Cook? Provider:? Mathew Nayak DO, MPH Busrha Cook has been referred to the [facility] for Bilateral Lumbar Radiofrequency Ablation with the [employer] Machine.? Pre Operative Diagnosis: Lumbosacral Spondylosis without Myelopathy ICD-10 M47.816 Post Operative Diagnosis: Same Pre procedure pain; VAS= 7/10 Comments: She did very well with her last RFA on 05/28/23 and had >6 months of >50% pain relief PROCEDURE: Radiofrequency Ablation of medial branches - bilateral L3, L4, L5 and lateral branches of bilateral S1. Bushra?was interviewed and the medical record was reviewed.? There were no medical, pharmacologic, radiographic or other structural contraindications to attempting fluoroscopically guided BILATERAL Lumbar Radiofrequency Ablation.?Risks and expected side effects as well as potential benefit of the procedure were reviewed with Bushra, and the patient's voiced concerns were addressed.? The printed consent form was signed.? Standard time-out procedure was performed. Bushra was brought into the fluoroscopy suite and positioned into the prone position on the fluoroscopy table and allowed to adjust to a position of comfort. A grounding pad was placed on the left abdomen. The sterile field was prepared using chlorhexidine preparation of the skin and sterile draping. Local anesthesia superficial and deep was provided by local infiltration of 2% lidocaine. A 17g 100 mm radiofrequency introducer needle was placed to the planned anatomic targets guided with intermittent fluoroscopy with a perpendicular approach to terminally place at the junction of the superior articular process and the transverse process of the bilateral L4, L5, the base of the sacral ala on the bilateral for the L5 medial branch nerve and the area between base of the sacral ala to the S1 foramen bilaterally. The stylets were removed and radiofrequency probes with a 4mm active tip were then inserted. Needle tip position of the probes was verified in the AP, oblique, and lateral views. At each site, the medial branch nerve was stimulated at 2 Hz to a maximum 1-2 volts determined to finalize safe needle and electrode placement. The patient was awake and responsive during this portion of the procedure. Each target was anesthetized with 1-2 mL of 2 % Lidocaine for anesthesia for lesioning and then each target was lesioned at 80 degrees Celsius for 2 minutes and 30 seconds. Tissue impedances were noted to be between 250 and 500 Ohms. I next injected 1/4 cc of Depomedrol (40 mg/cc) followed by 1 cc of 0.5% Bupivacaine. There was no unusual discomfort expressed by Bushra. The needles were withdrawn without difficulty and bandages placed over the needle placement sites, the patient was observed and was without hemodynamic, neurologic, or allergic reactions. Fluoroscopic images were digitally archived. POST PROCEDURE EVALUATION: IMPRESSION: 1. Summary of procedure. Medication given is documented in the MAR. 2. Follow up plan: Bushra to contact [facility] as needed.?This procedure may be repeated if the patient achieves at least 50% improvement in pain/function for at least 6 months. 3. Estimated Blood Loss: <5 mls 4. Fluoroscopy time: Documented in the EMR. Follow up plans and appointments were discussed with the Bushra. Post procedure instruction was given as documented in nursing documentation and having met discharge criteria, Bushra was discharged from the [facility]. COMMENTS: No apparent complications. Post-procedure pain: VAS= 1/10. I personally completed the entire procedure. MATHEW NAYAK DO, MPH ABPM&R - Subspecialty board certification in Pain Medicine [facility] [facility] Management
== END 2024-02-12 07:20 | disposition home or self-care (01) ==
LOC: PC 07:19
PROVIDERS: PCP Family Medicine; Visit Provider Preventive Medicine Occupational Medicine
DX: M54.50 Low back pain, unspecified (principal); M47.816 Spondylosis without myelopathy or radiculopathy, lumbar region
CPT/HCPCS: 64635; 64636; 72100; J0665; J1010; J2003; J2250; J3010

== ENCOUNTER 2024-03-18 03:32 | Outpatient (CLI) | payer MEDICARE, BC, SELFPAY ==
[2024-03-18 10:00] LABS: ALT 20 U/L (14-59); AST 30 U/L (15-37); Albumin 4.1 g/dL (3.4-5.0); Alkaline Phosphatase 62 U/L (46-116); BUN 8 mg/dL (7-18); Bilirubin, Total 0.51 mg/dL (0.2-1.0); CREATININE 0.7 mg/dL (0.55-1.02); Chloride 96 mmol/L (98-107); Estimated GFR 92.41 (mL/min/1.73m2); Glucose 104 mg/dL (74-106); Potassium 5.3 mmol/L (3.5-5.1); Sodium 134 mmol/L (136-145); TSH (W/Ref FT4) 5.87 uIU/mL (0.36-3.74); Total Protein 8.4 g/dL (6.4-8.2)
[2024-03-18 10:17] LABS: FREE T4 0.86 ng/dL (0.76-1.46)
== END 2024-03-18 03:33 | disposition home or self-care (01) ==
LOC: LBO 03:32
PROVIDERS: PCP Family Medicine; Visit Provider Family Medicine
DX: I10 Essential (primary) hypertension (principal); E03.9 Hypothyroidism, unspecified
CPT/HCPCS: 36415; 80053; 84439; 84443

== ENCOUNTER 2024-09-02 06:52 | Outpatient (CLI) | payer MEDICARE, BC, SELFPAY ==
[2024-09-02] VITALS (21 sets, daily range): BP systolic 164–243; BP diastolic 78–132; PULSE 0–81; RESP 10–20; TEMP 36.6; O2SAT 94–100
--- NOTE | 2024-09-02 06:00 | DI.RAD_ITS ---
Exam(s) XR PAIN CLINIC LUMBAR SP 2V EXAM: XR PAIN CLINIC LUMBAR SP 2V CLINICAL HISTORY: DX: Lumbar Spondylosis TECHNIQUE: 2D and realtime digital imaging was performed. CONTRAST MATERIAL: Refer to procedure report. COMPARISON: No exams were available for comparison FINDINGS: Fluoroscopy was provided for Dr. Nayak during the performance of a bilateral lumbar radiofrequency ab lation. Please refer to the procedure report for complete details. Ka,r=12.7 mGy IMPRESSION: RADIATION DOSE DELIVERED: 0.0 0.0 0
[2024-09-02] MEDS: Midazolam 2 MG/2 ML VIAL IVP (08:20)
[2024-09-02] MEDS: fentaNYL 100 MCG/2 ML VIAL IVP (08:20)
[2024-09-02] MEDS: Lactated Ringers 500 ML 80 ML IV (08:36)
[2024-09-02] MEDS: methylPREDNISolone ACETATE 40 MG/ML VIAL IJ (09:06)
[2024-09-02] MEDS: Bupivacaine 0.5% Pres-Free 10 ML VIAL IJ (09:07)
[2024-09-02] MEDS: Lidocaine 2% Multi-Dose 20 ML VIAL IJ (09:07)
[2024-09-02] MEDS: Nerve Block Tray 1 EACH MC (09:08)
--- NOTE | 2024-09-02 09:08 | PDOC.PAIN_ITS ---
Date of service: 09/02/24 Time of Service: 09:08 Pain Managment Procedure Note Procedure Note Procedure Note: PROCEDURE NOTE BILATERAL LUMBAR RADIOFREQUENCY ABLATION Date of Service: September 02, 2024 Patient:? Bushra Cook? Provider:? Mathew Nayak DO, MPH Bushra Cook [facility] Bilateral Lumbar Radiofrequency Ablation with the [employer]s Machine.? Pre Operative Diagnosis: Lumbosacral Spondylosis without Myelopathy ICD-10 M47.816 Post Operative Diagnosis: Same Pre procedure pain; VAS= 7/10 Comments: Previous RFA on 02/12/2024 with >50% pain relief >6 months PROCEDURE: Radiofrequency Ablation of medial branches - bilateral L3, L4, L5 and lateral branches of bilateral S1. Bushra?was interviewed and the medical record was reviewed.? There were no medical, pharmacologic, radiographic or other structural contraindications to attempting fluoroscopically guided BILATERAL Lumbar Radiofrequency Ablation.?Risks and expected side effects as well as potential benefit of the procedure were reviewed with Bushra, and the patient's voiced concerns were a ddressed.? The printed consent form was signed.? Standard time-out procedure was performed. Bushra was brought into the fluoroscopy suite and positioned into the prone position on the fluoroscopy table and allowed to adjust to a position of comfort. A grounding pad was placed on the left abdomen. The sterile field was prepared using chlorhexidine preparation of the skin and sterile draping. Local anesthesia superficial and deep was provided by local infiltration of 2% lidocaine. A 17g 100 mm radiofrequency introducer needle was placed to the planned anatomic targets guided with intermittent fluoroscopy with a perpendicular approach to terminally place at the junction of the superior articular process and the transverse process of the bilateral L4, L5, the base of the sacral ala on the b ilateral for the L5 medial branch nerve and the area between base of the sacral ala to the S1 foramen bilaterally. The stylets were removed and radiofrequency probes with a 4mm active tip were then inserted. Needle tip position of the probes was verified in the AP, oblique, and lateral views. At each site, the medial branch nerve was stimulated at 2 Hz to a maximum 1-2 volts determined to finalize safe needle and electrode placement. The patient was awake and responsive during this portion of the procedure. Each target was anesthetized with 1-2 mL of 2 % Lidocaine for anesthesia for lesioning and then each target was lesioned at 80 degrees Celsius for 2 minutes and 30 seconds. Tissue impedances were noted to be between 250 and 500 Ohms. I next injected 1/4 cc of Depomedrol (40 mg/cc) followed by 1 cc of 0.5% Bupivacaine at each segmental sensory nerve. There was no unusual discomfort expressed by Bushra. The needles were withdrawn without difficulty and bandages placed over the needle placement sites, the patient was observed and was without hemodynamic, neurologic, or allergic reactions. Fluoroscopic images were digitally archived. POST PROCEDURE EVALUATION: IMPRESSION: 1. Summary of procedure. Medication given is documented in the MAR. 2. Follow up plan: Bush[facility] to contact [facility] needed.?This procedure may be repeated if the patient achieves at least 50% improvement in pain/function for at least 6 months. 3. Estimated Blood Loss: <5 mls 4. Fluoroscopy time: Documented in the EMR. Follow up plans and appointments were discussed with the Bushra. Post procedure instruction was given as documented in nursing documentation and having met discharge criteria, Bushra was [facility] from the [facility]. This advanced procedure uses cooled radiofrequency energy to safely target the sensory nerves responsible for sending pain signals.1 A radiofrequency generator transmits a small current of Radiofrequency energy through an insulated electrode, or probe, placed within tissue. Ionic heating, produced by the friction of charged molecules, thermally deactivates the nerves responsible for sending pain signals to the brain. Radiofrequency energy heats and cools the tissue at the site of pain. Unlike other Radiofrequency procedures, Coolief circulates water through the device while heating nervous tissue to create a larger treatment area, increasing the opportunity to help with pain. This combination targets the pain- transmitting nerves without excessive heating, leading to pain relief. COMMENTS: No apparent complications. Post-procedure pain: VAS= 3/10. I personally completed the entire procedure. MATHEW NAYAK DO, MPH ABPM[employer]R - Subspecialty board certification in Pain Medicine [facility] Coding Conscious Sedation used for procedure: No CPT Codes: Inj Spine L/S w/Imaging - 18322 ([id number] ~G) Additional Codes: Date of Service (47761) Date of service: 09/02/24
== END 2024-09-02 06:53 | disposition home or self-care (01) ==
LOC: PC 06:58
PROVIDERS: PCP Family Medicine; Visit Provider Preventive Medicine Occupational Medicine
DX: M47.816 Spondylosis without myelopathy or radiculopathy, lumbar region (principal); M54.50 Low back pain, unspecified
CPT/HCPCS: 62323; 64635; 64636; 72100; J0665; J1010; J2003; J2250; J3010

== ENCOUNTER 2025-03-24 11:53 | Outpatient (CLI) | payer MEDICARE, BC, SELFPAY ==
[2025-03-24] VITALS (18 sets, daily range): BP systolic 169–265; BP diastolic 89–151; PULSE 68–78; RESP 10–20; TEMP 36.9; O2SAT 91–98
--- NOTE | 2025-03-24 06:00 | DI.RAD_ITS ---
Exam(s) XR PAIN CLINIC LUMBAR SP 2V EXAM: XR PAIN CLINIC LUMBAR SP 2V CLINICAL HISTORY: DX: Lumbar Spondylosis. TECHNIQUE: Fluoroscopy was provided for the referring physician for guidance with performing pain clinic injection procedure. COMPARISON: No exams were available for comparison FINDINGS: Please see procedure note for details. Fluoro time: 61.8 seconds RADIATION DOSE DELIVERED: kaylyn Tavarez=11.2 mGy
[2025-03-24] MEDS: Midazolam 2 MG/2 ML VIAL IVP (13:20)
[2025-03-24] MEDS: fentaNYL 100 MCG/2 ML VIAL IJ (13:20)
[2025-03-24] MEDS: Nerve Block Tray 1 EACH MC (13:39)
[2025-03-24] MEDS: Bupivacaine 0.5% Pres-Free 10 ML VIAL IJ (14:07)
[2025-03-24] MEDS: Lactated Ringers 500 ML 30 ML IV (14:07)
[2025-03-24] MEDS: Lidocaine 2% Multi-Dose 20 ML VIAL IJ (14:08)
[2025-03-24] MEDS: methylPREDNISolone ACETATE 40 MG/ML VIAL IJ (14:08)
--- NOTE | 2025-03-24 14:26 | PDOC.PAIN_ITS ---
Date of service: 03/24/25 Time of Service: 14:27 Pain Managment Procedure Note Procedure Note Procedure Note: PROCEDURE NOTE BILATERAL LUMBAR RADIOFREQUENCY ABLATION Date of Service: March 24, 2025 Patient:? Bushra Cook? Provider:? Mathew Nayak DO, MPH Bushra Cook has [facility] Bilateral Lumbar Radiofrequency Ablation with the [employer] Machine.? Pre Operative Diagnosis: Lumbosacral Spondylosis without Myelopathy ICD-10 M47.816 Post Operative Diagnosis: Same Pre procedure pain; VAS= 7/10 Comments: She had >6 months of >50% pain improvement after her last RFA. Her pain has mostly returned. PROCEDURE: Radiofrequency Ablation of medial branches - bilateral L3, L4, L5 and lateral branches of bilateral S1. Bushra?was interviewed and the medical record was reviewed.? There were no medical, pharmacologic, radiographic or other structural contraindications to attempting fluoroscopically guided BILATERAL Lumbar Radiofrequency Ablation.?Risks and expected side effects as well as potential benefit of the procedure were reviewed with Bushra, and the patient's voiced concerns were addressed.? The printed consent form was signed.? Standard time-out procedure was performed. Bushra was brought into the fluoroscopy suite and positioned into the prone position on the fluoroscopy table and allowed to adjust to a position of comfort. A grounding pad was placed on the left abdomen. The sterile field was prepared using chlorhexidine preparation of the skin and sterile draping. Local anesthesia superficial and deep was provided by local infiltration of 2% lidocaine. A 17g 100 mm radiofrequency introducer needle was placed to the planned anatomic targets guided with intermittent fluoroscopy with a perpendicular approach to terminally place at the junction of the superior articular process and the transverse process of the bilateral L4, L5, the base of the sacral ala on the bilateral for the L5 medial branch nerve and the area between base of the sacral ala to the S1 foramen bilaterally. The stylets were removed and radiofrequency probes with a 4mm active tip were then inserted. Needle tip position of the probes was verified in the AP, oblique, and lateral views. At each site, the medial branch nerve was stimulated at 2 Hz to a maximum 1-2 volts determined to finalize safe needle and electrode placement. The patient was awake and responsive during this portion of the procedure. Each target was anesthetized with 1-2 mL of 2 % Lidocaine for anesthesia for lesioning and then each target was lesioned at 80 degrees Celsius for 2 minutes and 30 seconds. Tissue impedances were noted to be between 250 and 500 Ohms. I then injected 1/4 cc of Depomedrol (40 mg/cc) followed by 1/2 cc of 0.5% Bupivacaine at each segmental sensory nerve. There was no unusual discomfort expressed by Bushra. The needles were withdrawn without difficulty and bandages placed over the needle placement sites, the patient was observed and was without hemodynamic, neurologic, or allergic reactions. Fluoroscopic images were digitally archived. POST PROCEDURE EVALUATION: -her blood pressure remained elevated throughout the procedure. She denied any chest pain, shortness of breath, left arm/neck pain, and headaches. She denies any atypical symptoms. I did warn her about and she is going to see her PCP about this issue LUAN. IMPRESSION: 1. Summary of procedure. Medication given is documented in the MAR. 2. Follow up plan: Bushra to contact [facility] needed.?This procedure may be repeated if the patient achieves at least 50% improvement in pain/function for at least 6 months. 3. Estimated Blood Loss: <5 mls 4. Fluoroscopy time: Documented in the EMR. Follow up plans and appointments were discussed with the Bushra. Post procedure instruction was given as documented in nursing documentation and having met discharge criteria, Bushra was discharged from the [facility]. This advanced procedure uses cooled radiofrequency energy to safely target the sensory nerves responsible for sending pain signals.1 A radiofrequency generator transmits a small current of Radiofrequency energy through an insulated electrode, or probe, placed within tissue. Ionic heating, produced by the friction of charged molecules, thermally deactivates the nerves responsible for sending pain signals to the brain. Radiofrequency energy heats and cools the tissue at the site of pain. Unlike other Radiofrequency procedures, Coolief circulates water through the device while heating nervous tissue to create a larger treatment area, increasing the opportunity to help with pain. This combination targets the pain- transmitting nerves without excessive heating, leading to pain relief. COMMENTS: No apparent complications. Post-procedure pain: VAS= 2/10. I personally completed the entire procedure. MATHEW NAYAK DO, MPH ABPM&R - Subspecialty board certification in Pain Medicine [facility] Coding Conscious Sedation used for procedure: No CPT Codes: Single Facet Joint, Lumbar/Sacral *BILATERAL* - [id number] ([id number]~G) Single Facet Joint, Lumbar/Sacral cool each add'l - 38125Q ([id number]~G) Additional Codes: Date of Service () Diagnoses: Lumbar spondylosis without myelopathy
== END 2025-03-24 11:54 | disposition home or self-care (01) ==
LOC: PC 11:53
PROVIDERS: PCP Family Medicine; Visit Provider Preventive Medicine Occupational Medicine
DX: M54.50 Low back pain, unspecified (principal); M47.816 Spondylosis without myelopathy or radiculopathy, lumbar region
CPT/HCPCS: 64635; 64636; 72100; J0665; J1010; J2003; J2250; J3010